=== PATIENT | male | born 1945 | race African-American/Black ===

== ENCOUNTER → 2022-12-30 09:14 | Outpatient (BNVA) | payer MEDICARE, SELFPAY | PROVIDERS: Visit Provider Urology | DX: N32.81 Overactive bladder (principal); I10 Essential (primary) hypertension; Z79.82 Long term (current) use of aspirin | CPT/HCPCS: 51798; 99202 ==

== ENCOUNTER → 2023-03-10 10:30 | Outpatient (BNVA) | payer MEDICARE, SELFPAY | PROVIDERS: PCP Family Medicine; Visit Provider Urology | DX: R39.15 Urgency of urination (principal); R35.0 Frequency of micturition | CPT/HCPCS: 52000; 99212 ==

== ENCOUNTER 2023-05-10 09:53 | Outpatient (AMB) | payer MEDICARE, SELFPAY ==
--- NOTE | 2023-05-10 09:53 | MHC.OFFVIS ---
Intake Intake Visit Reasons: 2Month follow up Intake Note: Patient is present for Telephone follow up Urology Med: Oxybutynin, Tadalafil Antibiotic Allergy: None Blood Thinner:Aspirin Pharmacy: [facility] Allergies No Known Allergies Allergy (Verified 05/10/23 09:54) Medication List - Last Reconciled 05/10/23 by Giovanny Vega MD aspirin 81 mg PO DAILY atorvastatin 80 mg PO DAILY lisinopril-hydrochlorothiazide 20-12.5 mg 1 tab PO DAILY metoprolol succinate ER 50 mg PO DAILY mirabegron ER (Myrbetriq) 25 mg PO DAILY 30 days oxybutynin chloride ER 5 mg PO DAILY 30 days HPI HPI Comments History of Present Illness Details Aba is a pleasant male. He is a patient of Dr Gaston. He is seen for the following urologic conditions - overactive bladder Telemedicine Evaluation 15 min Consultation [facility] Video attempted Minimal impact with tadalafil Switch to Myrbetriq 25 mg Two month follow-up Cystoscopy - open bladder neck, grade 3 trabeculations, small diverticulum Prior medications - oxybuytinin, tadalafil Overactive bladder Longstanding urgency and frequency Prior prostate procedure for BPH Discussed bladder instability Discussed dietary triggers Current therapy tadalafil 5 mg Cystoscopy - open bladder neck prior to have, grade 3 trabeculation, small diverticula Prior medication oxybutynin minimal impact PFSH Medical History Frequent urination HTN (hypertension) Surgical History H/O transurethral resection of prostate Assessment & Plan Assessment & Plan (1) Overactive bladder: Code(s): N32.81 - Overactive bladder Plan Two month follow-up Medications: New mirabegron ER (Myrbetriq) 25 mg PO DAILY 30 tabs 1RF 30 days N30.10 - Interstitial cystitis (chronic) without hematuria, N32.81 - Overactive bladder, R35.1 - Nocturia, R39.15 - Urgency of urination Discontinued tadalafil Discontinued Reason: Patient Completed Course 5 mg PO DAILY 90 tabs 0RF sexual activity 90 days N32.81 - Overactive bladder Patient Instructions: Imaging studies, laboratory and physical exam results were discussed and reviewed in detail. No major barriers to patient understanding were identified. An opportunity to ask questions regarding the treatment plan was provided. All questions were answered. The patient expressed understanding and agreement with the above treatment plan. The patient is aware they should contact our office by phone for worsening of their current condition or the appearance of new urologic symptoms. Compliance is encouraged with any medications and followup testing that is ordered. It is a privilege to participate in the urologic care of your patient. If you have any questions or concerns regarding treatment for the above conditions, or other urologic issues, please do not hesitate to contact me. The office telephone contact is [phone]. This note is constructed using voice recognition software. While every effort has been made to ensure accuracy access control specialist errors may have been included. Yours sincerely, Dr Giovanny Vega MD, SOPHY [facility] - Urology Providers of Expert, Compassionate Care for the Genitourinary System Telehealth Telehealth Location of provider rendering services: practice address Location of patient: address on file Patient Identification confirmed using: Name, : Yes Telehealth method: video Patient verbally consented to treatment: Yes Patient verbally consented to billing insurance company: Yes Patient informed of any privacy concerns related to visit: Yes Coding Level of Care Code Tele Est Pt Level 4 (20117) Diagnoses Overactive bladder N32.81
--- OUTSIDE RECORDS SUMMARY | 2023-05-10 09:54 | XMS_ITS | Continuity of Care Document ---
Author Name Unknown Organization [facility] ter Address [address] [place] [id number]- Care Team Providers Care Oncology Rn Name Role Phone Alek GARAY, Paramjit Reyes Primary Care Physician Encounter [facility] R [id number] Date(s): 12/11/20 - 12/11/[address] [address]- Encounter Diagnosis Precordial pain(Final) - 12/11/20 Discharge Disposition: A-D/C Home Attending Physician: Etta Harris MD Admitting Physician: Etta Harris MD Referring Physician: Not on Staff, Referring MD Allergies, Adverse Reactions, Alerts Substance Reaction Severity Status NKA Active Immunizations Not Given Vaccine Date Status Refusal Reason influenza virus vaccine, inactivated 11/10/17 Not Given Patient Refuses pneumococcal 13-valent vaccine 11/10/17 Not Given Patient Refuses Medications aspirin 81 mg oral delayed release tablet 81 mg, 1, tablet, By Mouth, Daily, # 90 tablet, Refills 3, Tot. Refills 3, Maintenance, 11/10/17 12:15:37, Route to Pharmacy Electronically, [id number], [facility]/pharmacy #0950 Start Date: 11/10/17 Stop Date: 11/05/18 Status: Ordered atorvastatin 80 mg oral tablet 1 tablet = 80 mg, By Mouth, Daily at bedtime, # 90 tablet, 0 Refills, Maintenance, Tablet, Route toPharmacy Electronically, [id number], [facility]/pharmacy #[id number] Start Date: 11/10/17 Stop Date: 02/08/18 Status: Ordered hydrochlorothiazide-lisinopril 12.5 mg-20 mg oral tablet 1 tablet, By Mouth, Daily, # 30 tablet, 0 Refills, Maintenance, 11/08/17 12:49:14, Tablet Start Date: 11/08/17 Status: Ordered metoprolol 50 mg oral tablet, extended release 50 mg, 1, tablet, By Mouth, Daily, # 90 tablet, Refills 3, Tot. Refills 3, Maintenance, 11/10/17 12:15:56, Route to Pharmacy Electronically, [id number], [facility]/pharmacy #0950 Start Date: 11/10/17 Stop Date: 11/05/18 Status: Ordered ticagrelor 90 mg oral tablet 1 tablet = 90 mg, By Mouth, 2 times a day, # 180 tablet, 3 Refills, Maintenance, 11/10/17 12:16:23,Tablet Start Date: 11/10/17 Stop Date: 11/05/18 Status: Ordered traMADol 50 mg oral tablet 1 tablet = 50 mg, By Mouth, Every 6 hours, PRN Pain , Severe, # 60 tablet, 0 Refills, Maintenance, 11/08/17 12:55:43, Tablet Start Date: 11/08/17 Status: Ordered Results Radiology Reports * Exam Date Time Procedure Performing Provider Status 12/11/20 4:42 PM Chest 2 Views Frontal and Lat Aleta Garces; To (Verified) Notes: (Chest 2 Views Frontal and Lat) Reason For Exam: Chest Pain;Other: RESULT: Chest 2 Views Frontal and Lat Chest 2 Views Frontal and Lat INDICATION: Hx of Present Illness: co heartburn no relief with Prilosec, states pain in center chest states pain has decreased, states stomach upset this am but denies at this time; Reason: Other:;Chest Pain; Clinical Question(s): Other: COMPARISON: 10/07/2020. FINDINGS: LINES AND TUBES: None. LUNGS AND PLEURA: The lungs are clear and the pulmonary vascularity is normal. No effusion or pneumothorax. HEART, MEDIASTINUM AND CAYDEN: Normal. BONES AND SOFT TISSUES: No acute abnormality. IMPRESSION: No acute cardiopulmonary disease. WSN: [id number] Ordering Physician: Sb Tejada Dictated By: Jacqueline Ruiz MD Dictated Date/Time: 12/11/20 4:49 pm Reviewed By: Jacqueline Ruiz MD Signed By: Jacqueline Ruiz MD Signed Date/Time: 12/11/20 4:49 pm Transcribed By: ELANA Transcribed Date/Time: 12/11/20 4:48 pm Vital Signs Most recent to oldest [Reference Range]: 1 2 3 Oxygen Saturation [94-100 %] 99 % (12/11/20 10:35 PM) 99 % (12/11/20 7:51 PM) 99 % (12/11/20 3:45 PM) Pulse Rate [55-90 bpm] 58 bpm (12/11/20 10:35 PM) 53 bpm *L* (12/11/20 7:51 PM) 90 bpm (12/11/20 3:45 PM) Blood Pressure [90-138/55-84 mm Hg] 137/60mm Hg (12/11/20 10:35 PM) 139/70mm Hg *H* (12/11/20 7:51 PM) 139/71mm Hg *H* (12/11/20 3:45 PM) Respiratory Rate [16-30 br/min] 16 br/min (12/11/20 10:35 PM) 13 br/min *L* (12/11/20 7:51 PM) 16 br/min (12/11/20 3:45 PM) Temperature [96.8-100.4 DegF] 98.6 DegF (12/11/20 7:51 PM) 98.5 DegF (12/11/20 3:45 PM) Mode of Delivery (Oxygen) Room air (12/11/20 10:35 PM) Room air (12/11/20 7:51 PM) Room air (12/11/20 3:45 PM) Blood pressure sites Arm, left (12/11/20 10:35 PM) Arm, left (12/11/20 7:51 PM) Temperature Route Oral (12/11/20 7:51 PM) Oral (12/11/20 3:45 PM) Social History Social History Type Response Smoking Status Former smoker; Other : quit 40 years ago; entered on: 02/05/18 Sex
--- OUTSIDE RECORDS SUMMARY | 2023-05-10 09:54 | XMS_ITS | Continuity of Care Document ---
Author Name Unknown Organization [facility] Address [address] [facility], 3r d Floor, [address] [place] [id number]- Care Team Providers Care Stroke Program Coordinator Name Role Phone Alek GARAY, Paramjit Reyes Primary Care Physician [place] [facility] [place] 10/02/20 [facility] [address], [address], [address] [place] [address]- Attending Physician: Ellen Fonseca Admitting Physician: Ellen Fonseca Referring Physician: AdmtrEllen Allergies, Adverse Reactions, Alerts Substance Reaction Severity [...] Maintenance, 11/10/17 12:15:37, Route to Pharmacy Electronically, [id number], [facility]/pharmacy #0950 Start Date: 11/10/17 Stop Date: 11/05/18 Status: Ordered atorvastatin 80 mg oral tablet 1 tablet = 80 mg, By Mouth, Daily at bedtime, # 90 tablet, 0 Refills, Maintenance, Tablet, Route toPharmacy Electronically, [id number], [facility]/pharmacy #0950 Start Date: 11/10/17 [...] Maintenance, 11/10/17 12:15:56, Route to Pharmacy Electronically, [id number], [facility]/pharmacy #0950 Start Date: 11/10/17 [...] 12:55:43, Tablet Start Date: 11/08/17 Status: Ordered Social History Social History Type Response Smoking Status Former smoker; Other : quit 40 years ago; entered on: 02/05/18 Sex
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
--- OUTSIDE RECORDS SUMMARY | 2023-05-10 09:54 | XMS_ITS | Continuity of Care Document ---
Author Name Unknown Organization [facility] Address [address] [facility], [address] d Floor, [address] [place] [address]- Care Team Providers Care Product Managent Intern Name Role Phone Paramjit Gaston MD Primary Care Physician [phone] [id number] Date(s): 06/12/20 - 10/02/20 [facility] [address], [address], [address] [place] [id number] Attending Physician: Erik Sims MD Admitting Physician: Erik Sims MD Referring Physician: Paramjit Gaston MD Allergies, Adverse Reactions, Alerts Substance Reaction [...] Maintenance, 11/10/17 12:15:37, Route to Pharmacy Electronically, [id number], [facility]/pharmacy #0950 Start Date: 11/10/17 Stop Date: 11/05/18 Status: Ordered atorvastatin 80 mg oral tablet 1 tablet = 80 mg, By Mouth, Daily at bedtime, # 90 tablet, 0 Refills, Maintenance, Tablet, Route toPharmacy Electronically, [id number], [facility]/pharmacy #0950 Start Date: 11/10/17 Stop Date: 02/08/18 Status: Ordered hydrochlorothiazide-lisinopril 12.5 mg-20 mg oral tablet 1 tablet, By Mouth, Daily, # 30 tablet, 0 Refills, Maintenance, 11/08/17 12:49:14, Tablet Start Date: 11/08/17 Status: Ordered metoprolol 50 mg oral tablet, extended release 50 mg, 1, tablet, By Mouth, Daily, # 90 tablet, Refills 3, Tot. Refills 3, Maintenance, 11/10/17 12:15:56, Route to Pharmacy Electronically, [id number], [facility]/pharmacy #0950 Start Date: 11/10/17 Stop Date: 11/05/18 [...]
--- OUTSIDE RECORDS SUMMARY | 2023-05-10 09:54 | XMS_ITS | Continuity of Care Document ---
Author Name Unknown Organization [facility] ion Address [address] [place] [address]- Care Team Providers Care Township Clerk Name Role Phone Paramjit Gaston MD Primary Care Physician Encounter [facility] Date(s): 06/16/20 - 07/18/[address] [address]- [facility] Discharge Disposition: A-D/C Home Attending Physician: Paramjit Gaston MD Admitting Physician: Paramjit Gaston MD Referring Physician: Paramjit Gaston MD Allergies, [...] Maintenance, 11/10/17 12:15:37, Route to Pharmacy Electronically, [id number], [facility]/pharmacy #0950 Start Date: 11/10/17 Stop Date: 11/05/18 Status: Ordered atorvastatin 80 mg oral tablet 1 tablet = 80 mg, By Mouth, Daily at bedtime, # 90 tablet, 0 Refills, Maintenance, Tablet, Route toPharmacy Electronically, [id number], [facility]/pharmacy #0950 Start Date: 11/10/17 Stop Date: [...] Maintenance, 11/10/17 12:15:56, Route to Pharmacy Electronically, [id number], [facility]/pharmacy #0950 Start Date: 11/10/17 Stop Date: [...]
== END 2023-05-10 10:09 | disposition home or self-care (01) ==
LOC: HO.HUSH 09:53
PROVIDERS: PCP Family Medicine; Visit Provider Urology
DX: N32.81 Overactive bladder (principal)
CPT/HCPCS: 99214

== ENCOUNTER → 2023-05-10 09:53 | Outpatient (BNVA) | payer MEDICARE, SELFPAY | PROVIDERS: PCP Family Medicine; Visit Provider Urology ==

== ENCOUNTER 2023-10-18 08:28 | Outpatient (AMB) | payer MEDICARE, SELFPAY ==
--- NOTE | 2023-10-18 08:32 | MHC.OFFVIS ---
Intake Intake Visit Reasons: 2M Med Review(Myrbetriq) Intake Note: Patient is Present for Telephone Follow Up Urology Med: Tadalafil Antibiotic Allergy: None Blood Thinner: Aspirin Patient did not get medication Myrbetriq and he is no longer on oxybutynin Allergies No Known Allergies Allergy (Verified 10/18/23 08:35) HPI HPI Comments History of Present Illness Details Aba is a pleasant male. He is a patient of Dr Gaston. He is seen for the following urologic conditions - overactive bladder Telemedicine Evaluation 15 min Consultation [facility] Video attempted Myrbetriq not covered by insurance Will try Toviaz 2 month f/u Has upcoming sleep test. Will start medication after sleep test Cystoscopy - open bladder neck, grade 3 trabeculations, small diverticulum Prior medications - oxybuytinin, tadalafil Overactive bladder Longstanding urgency and frequency Prior prostate procedure for BPH Discussed bladder instability Discussed dietary triggers Current therapy tadalafil 5 mg Cystoscopy 07/25 - open bladder neck prior to have, grade 3 trabeculation, small diverticula Prior medication oxybutynin minimal impact PFSH Medical History HTN (hypertension) Frequent urination Surgical History H/O transurethral resection of prostate Review of Systems Const All systems reviewed & are unremarkable except as noted in HPI and below Reports no additional complaints Resp Reports no additional complaints GI Reports no additional complaints Reports as per HPI Musc Reports no additional complaints Physical Exam Telemedicine evaluation Appropriate responses Regular breathing rate and rhythm HEENT Head: Yes normal to inspection Ears: hearing grossly normal bilaterally Eyes General: appearance normal, both eyes and all related structures Neck Neck: Yes normal visual inspection Chest Chest palpation & inspection: normal inspection of the chest Resp Effort & Inspection: normal respiratory effort and able to speak in complete sentences Assessment & Plan Assessment & Plan (1) Overactive bladder: Code(s): N32.81 - Overactive bladder Plan trial toviaz Medications: New fesoterodine ER 4 mg PO DAILY 30 tabs 1RF 30 days N32.81 - Overactive bladder, N40.0 - Benign prostatic hyperplasia without lower urinary tract symptoms Patient Instructions: Imaging studies, laboratory and physical exam results were discussed and reviewed in detail. No major barriers to patient understanding were identified. An opportunity to ask questions regarding the treatment plan was provided. All questions were answered. The patient expressed understanding and agreement with the above treatment plan. The patient is aware they should contact our office by phone for worsening of their current condition or the appearance of new urologic symptoms. Compliance is encouraged with any medications and followup testing that is ordered. It is a privilege to participate in the urologic care of your patient. If you have any questions or concerns regarding treatment for the above conditions, or other urologic issues, please do not hesitate to contact me. The office telephone contact is [phone]. This note is constructed using voice recognition software. While every effort has been made to ensure accuracy bag inspector errors may have been included. Yours sincerely, Dr Giovanny Vega MD, SOPHY [facility] - Urology Providers of Expert, Compassionate Care for the Genitourinary System Telehealth Telehealth Location of provider rendering services: practice address Location of patient: address on file Patient Identification confirmed using: Name, : Yes Telehealth method: video Patient verbally consented to treatment: Yes Patient verbally consented to billing insurance company: Yes Patient informed of any privacy concerns related to visit: Yes Coding Level of Care Code Tele Est Pt Level 4 (99434) Diagnoses Overactive bladder N32.81
== END 2023-10-18 08:50 | disposition home or self-care (01) ==
LOC: HO.HUSH 08:28
PROVIDERS: PCP Family Medicine; Visit Provider Urology
DX: N32.81 Overactive bladder (principal)
CPT/HCPCS: 99213

== ENCOUNTER → 2023-10-18 08:28 | Outpatient (BNVA) | payer MEDICARE, SELFPAY | PROVIDERS: PCP Family Medicine; Visit Provider Urology ==

== ENCOUNTER 2023-12-20 08:29 | Outpatient (AMB) | payer MEDICARE, SELFPAY ==
--- NOTE | 2023-12-20 08:30 | MHC.OFFVIS ---
Intake Intake Visit Reasons: 2M Med Review(Toviaz) Intake Note: Patient is Present for Telephone Follow Up medication review Urology Med:Toviaz,Tadalafil, Oxybutynin (Insurance did not cover Myrbetriq) Antibiotic Allergy:None Blood Thinner:Aspirin Confirmed pharmacy: [facility] Allergies No Known Allergies Allergy (Verified 12/20/23 08:31) HPI HPI Comments History of Present Illness Details Aba is a pleasant male. He is a patient of Dr Gaston. He is seen for the following urologic conditions - overactive bladder Telemedicine Evaluation 15 min Consultation [facility] [place] Video Toviaz minimal assistance Tried Gemtessa 2 month f/u Prior Cystoscopy 07/25 - open bladder neck, grade 3 trabeculations, small diverticulum Prior medications - oxybuytinin, tadalafil, myrbetriq effective but not covered by insurance, miinimal impact from Toviaz Overactive bladder Longstanding urgency and frequency Prior prostate procedure for BPH Discussed bladder instability Discussed dietary triggers Current therapy tadalafil 5 mg Cystoscopy 07/25 - open bladder neck prior to have, grade 3 trabeculation, small diverticula Prior medication oxybutynin minimal impact PFSH Medical History HTN (hypertension) Frequent urination Surgical History H/O transurethral resection of prostate Review of Systems Const All systems reviewed & are unremarkable except as noted in HPI and below Reports no additional complaints Resp Reports no additional complaints GI Reports no additional complaints Reports as per HPI Musc Reports no additional complaints Physical Exam Telemedicine evaluation Appropriate responses Regular breathing rate and rhythm HEENT Head: Yes normal to inspection Ears: hearing grossly normal bilaterally Eyes General: appearance normal, both eyes and all related structures Neck Neck: Yes normal visual inspection Chest Chest palpation & inspection: normal inspection of the chest Resp Effort & Inspection: normal respiratory effort and able to speak in complete sentences Assessment & Plan Assessment & Plan (1) Overactive bladder: Code(s): N32.81 - Overactive bladder Plan Trial Gemtesa Medications: New vibegron (Gemtesa) 75 mg PO DAILY 30 tabs 1RF 30 days N32.81 - Overactive bladder Discontinued oxybutynin chloride ER Discontinued Reason: Patient Completed Course 5 mg PO DAILY 30 days 30 tabs 1RF N32.81 - Overactive bladder mirabegron ER Discontinued Reason: Patient Completed Course 25 mg PO DAILY 30 days 30 tabs 1RF N30.10 - Interstitial cystitis (chronic) without hematuria, N32.81 - Overactive bladder, R35.1 - Nocturia, R39.15 - Urgency of urination fesoterodine ER Discontinued Reason: Patient Completed Course 4 mg PO DAILY 30 days 30 tabs 1RF N32.81 - Overactive bladder, N40.0 - Benign prostatic hyperplasia without lower urinary tract symptoms Patient Instructions: Imaging studies, laboratory and physical exam results were discussed and reviewed in detail. No major barriers to patient understanding were identified. An opportunity to ask questions regarding the treatment plan was provided. All questions were answered. The patient expressed understanding and agreement with the above treatment plan. The patient is aware they should contact our office by phone for worsening of their current condition or the appearance of new urologic symptoms. Compliance is encouraged with any medications and followup testing that is ordered. It is a privilege to participate in the urologic care of your patient. If you have any questions or concerns regarding treatment for the above conditions, or other urologic issues, please do not hesitate to contact me. The office telephone contact is [phone]. This note is constructed using voice recognition software. While every effort has been made to ensure accuracy secretary office clerk errors may have been included. Yours sincerely, Dr Giovanny eVga MD, [facility] - Urology Providers of Expert, Compassionate Care for the Genitourinary System Telehealth Telehealth Location of provider rendering services: practice address Location of patient: address on file Patient Identification confirmed using: Name, : Yes Telehealth method: video Patient verbally consented to treatment: Yes Patient verbally consented to billing insurance company: Yes Patient informed of any privacy concerns related to visit: Yes Minutes spent on Phone/Video with Pt.: 15 Coding Level of Care Code Tele Est Pt Level 3 (32141) Diagnoses Overactive bladder N32.81
== END 2023-12-20 16:30 | disposition home or self-care (01) ==
LOC: HO.HUSH 08:30
PROVIDERS: PCP Family Medicine; Visit Provider Urology
DX: N32.81 Overactive bladder (principal)
CPT/HCPCS: 99213

== ENCOUNTER → 2023-12-20 08:29 | Outpatient (BNVA) | payer MEDICARE, SELFPAY | PROVIDERS: PCP Family Medicine; Visit Provider Urology ==

== ENCOUNTER 2024-05-29 14:05 | Outpatient (AMB) | payer MEDICARE, SELFPAY ==
--- NOTE | 2024-05-29 14:32 | A.OFFVIS_ITS ---
Intake Visit Reasons: Med review Intake Note: Patient is Present for Follow Up Med Review Urology Medication: Tadalafil, Fesoterodine(Toviaz) Antibiotic Allergies: None Blood Thinners:None Patient states that he needs a refill on Fesoterodine States that medication has been effective for him Technology Teacher Required: No Allergies No Known Allergies Allergy (Verified 05/29/24 14:43) HPI Comments Details: Aba is a pleasant male. He is a patient of Dr Gaston. He is seen for the following urologic conditions - overactive bladder Good response to Toviaz Refill Prior Cystoscopy 07/25 - open bladder neck, grade 3 trabeculations, small diverticulum Prior medications - oxybuytinin, tadalafil, myrbetriq effective but not covered by insurance, miinimal impact from Gemtessa Six-month follow-up tele Overactive bladder Longstanding urgency and frequency Prior prostate procedure for BPH Discussed bladder instability Discussed dietary triggers Current therapy tadalafil 5 mg Cystoscopy 07/25 - open bladder neck prior to have, grade 3 trabeculation, small diverticula Prior medication oxybutynin minimal impact PFSH Medical History HTN (hypertension) Frequent urination Surgical History H/O transurethral resection of prostate Review of Systems Const Denies chills and Denies fever(s) Card Reports no additional complaints and Denies syncope Resp Denies cough GI Denies abdominal pain and Denies heartburn Reports as per HPI and Denies change in libido Neuro Denies syncope Psych Denies change in libido Endo Denies change in libido Physical Exam Const General: cooperative, healthy appearing, comfortable and no acute distress Orientation/consciousness: patient oriented x3 HEENT Face and sinus: Yes normal facial exam Mouth: moist mucous membranes Neck Neck: Yes normal visual inspection, Yes full ROM and Yes trachea midline Chest Chest palpation & inspection: normal inspection of the chest Resp Effort & Inspection: normal respiratory effort, able to speak in complete sentences and no respiratory distress GI Inspection: Yes normal to inspection Back/Spine/Pelvis Cervical Spine: normal cervical lordosis Thoracic/Lumbar Spine: thoracic and lumbar spine normal to inspection Skin General skin exam: no rashes or lesions noted Neuro General: patient oriented x3, gait normal, tone normal and moves all extremities Extrem General: Yes normal to inspection and Yes capillary refill normal Assessment & Plan Assessment & Plan (1) Overactive bladder: Code(s): N32.81 - Overactive bladder Category: Medical Plan Six-month follow-up tele Medications: Changed From fesoterodine ER 4 mg PO DAILY 30 days 30 tabs 1RF N32.81 - Overactive bladder, N40.0 - Benign prostatic hyperplasia without lower urinary tract symptoms To fesoterodine ER 4 mg PO DAILY 90 tabs 1RF 90 days N32.81 - Overactive bladder, N40.0 - Benign prostatic hyperplasia without lower urinary tract symptoms Patient Instructions: Imaging studies, laboratory and physical exam results were discussed and reviewed in detail. No major barriers to patient understanding were identified. An opportunity to ask questions regarding the treatment plan was provided. All questions were answered. The patient expressed understanding and agreement with the above treatment plan. The patient is aware they should contact our office by phone for worsening of their current condition or the appearance of new urologic symptoms. Compliance is encouraged with any medications and followup testing that is ordered. It is a privilege to participate in the urologic care of your patient. If you have any questions or concerns regarding treatment for the above conditions, or other urologic issues, please do not hesitate to contact me. The office telephone contact is [phone]. This note is constructed using voice recognition software. While every effort has been made to ensure accuracy agricultural equipment sales manager errors may have been included. Yours sincerely, Dr Giovanny Vega MD, [facility] - Urology Providers of Expert, Compassionate Care for the Genitourinary System Coding Level of Care Code Est Pt Level 3 (07777) Diagnoses Overactive bladder N32.81
== END 2024-05-29 15:35 | disposition home or self-care (01) ==
PROVIDERS: PCP Family Medicine; Visit Provider Urology
DX: N32.81 Overactive bladder (principal)
CPT/HCPCS: 99213

== ENCOUNTER → 2024-05-29 14:05 | Outpatient (BNVA) | payer MEDICARE, SELFPAY | PROVIDERS: PCP Family Medicine; Visit Provider Urology | DX: N32.81 Overactive bladder (principal) | CPT/HCPCS: 99212 ==

== ENCOUNTER 2024-11-30 11:55 | Outpatient (AMB) | payer MEDICARE, SELFPAY ==
--- NOTE | 2024-11-30 11:55 | MHC.OFFVIS ---
Intake Visit Reasons: 6M Med Review(Fesoterodine) Intake Note: Pt presents to the office today as a telehealth for a 6 month follow up medication review. Allergies No Known Allergies Allergy (Verified 11/30/24 11:56) HPI Comments Details: Aba is a pleasant male. He is a patient of Dr Gaston. 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 Had been on festerodine for overactive bladder Nocturia x1 6m f/u office Prior Cystoscopy 07/25 - open bladder neck, grade 3 trabeculations, small diverticulum Prior medications - oxybuytinin, tadalafil, myrbetriq effective but not covered by insurance, miinimal impact from Gemtessa Overactive bladder Longstanding urgency and frequency Prior prostate procedure for BPH Discussed bladder instability Discussed dietary triggers Current therapy tadalafil 5 mg Cystoscopy 07/25 - open bladder neck prior to have, grade 3 trabeculation, small diverticula Prior medication oxybutynin minimal impact PFSH Medical History HTN (hypertension) Frequent urination Surgical History H/O transurethral resection of prostate Review of Systems Const All systems reviewed & are unremarkable except as noted in HPI and below Reports no additional complaints Resp Reports no additional complaints GI Reports no additional complaints Reports as per HPI Musc Reports no additional complaints Physical Exam Telemedicine evaluation Appropriate responses Regular breathing rate and rhythm HEENT Head: Yes normal to inspection Ears: hearing grossly normal bilaterally Eyes General: appearance normal, both eyes and all related structures Neck Neck: Yes normal visual inspection Chest Chest palpation & inspection: normal inspection of the chest Resp Effort & Inspection: normal respiratory effort and able to speak in complete sentences Telehealth Telehealth Telehealth Platform: [employer] Location of provider rendering services: practice address Location of patient: address on file Patient Identification confirmed using: Name, : Yes Telehealth method: video Patient verbally consented to treatment: Yes Patient verbally consented to billing insurance company: Yes Patient informed of any privacy concerns related to visit: Yes Minutes spent on Phone/Video with Pt.: 15 Assessment & Plan Assessment & Plan (1) Overactive bladder: Code(s): N32.81 - Overactive bladder Category: Medical Plan Six-month follow-up office Patient Instructions: This note is constructed using voice recognition software. While every effort has been made to ensure accuracy memorial counselor errors may have been included. Imaging studies, laboratory and physical exam results were discussed and reviewed in detail. No major barriers to patient understanding were identified. An opportunity to ask questions regarding the treatment plan was provided. All questions were answered. The patient expressed understanding and agreement with the above treatment plan. The patient is aware they should contact our office by phone for worsening of their current condition or the appearance of new urologic symptoms. Compliance is encouraged with any medications and followup testing that is ordered. It is a privilege to participate in the urologic care of your patient. If you have any questions or concerns regarding treatment for the above conditions, or other urologic issues, please do not hesitate to contact me. The office telephone contact is [phone]. Sincerely, Dr Giovanny Vega MD, [facility] - Urology Compassionate Specialist Care for the Genitourinary System Coding Level of Care Code Tele Est Pt Level 3 (65561) Diagnoses Overactive bladder N32.81
--- OUTSIDE RECORDS SUMMARY | 2024-11-30 14:13 | XMS_ITS | Clinical Summary ---
Author Organization [facility] Address [address] [place] [address] Care Team Providers Care Urology Nurse Name Role Phone Paramjit Gaston MD Primary Care Provider [phone] Allergies No known active allergies Medications No known medications Active Problems No known active problems Social History Tobacco Use Types Packs/Day Years Used Date Smoking Tobacco: Never Assessed Sex and Gender Information Value Date Recorded Sex Assigned at Male 08/30/2023 11:18 AM EST Gender Identity Male 08/30/2023 11:18 AM EST Sexual Orientation Heterosexual (straight) 08/30 11:18 AM EST Last Filed Vital Signs Vital Sign Reading Time Taken Comments Blood Pressure 182/99 09/25/2020 9:11 PM EST Pulse 86 09/25/2020 9:11 PM EST Temperature 36.8 ??C (98.2 ??F) 09/25/2020 9:11 PM ES T Respiratory Rate 18 09/25/2020 9:11 PM EST Oxygen Saturation 99% 09/25/2020 9:11 PM EST Inhaled Oxygen Concentration - - Weight - - Height - - Body Mass Index - - Plan of Treatment Health Maintenance Due Date Last Done Comments Hepatitis C Virus Screening 1945 DTaP/Tdap/Td Vaccines (1 - Tdap) 1965 Pneumococcal Vaccines 50+ (1 of 1 - PCV) 1996 Zoster (Shingles) Vaccine (1 of 2) 1996 RSV Vaccine 60 years and older and Patients (1 - 1-dose 75+ series) 2021 Influenza Vaccine 05/03/2024 07/11/2023, 11/29/2022, 10/03/2018 COVID-19 Vaccine (3 - 2023-2 5 season) 2024 07/11/2023, 11/29/2022 Hepatitis B Vaccines Aged Out No long er eligible based on patient's age to complete this topic Care Teams Urology Nurse Relationship Specialty Start Date End Date Paramjit Gaston MD PCP - General Internal Medicine 09/25/20
--- OUTSIDE RECORDS SUMMARY | 2024-11-30 14:13 | XMS_ITS | Clinical Summary ---
Author Organization [facility] Address [address] [place] [address] Care Team Providers Care Manager Warehouse Name Role Phone Paramjit Gaston MD Primary Care Provider Unavaila ble Allergies No known active allergies Medications Medication Sig Dispensed Refills Start Date End Date Status atorvastatin (LIPITOR) tablet 80 mg Take 1 tablet (80 mg total) by mouth every night at bedtime. 0 11/10/2017 Active ASPIRIN LOW DOSE 81 MG EC tablet Take 1 tablet (81 mg total) by mouth daily. 0 05/17/2020 Active metoprolol succinate (TOPROL-XL) 24 hr tablet 25 mgIndications:Essenti al hypertension,CAD, multiple vessel Take 1 tablet (25 mg total) by mouth daily. 90 tablet 3 08/30/2023 Active Fesoterodine Fumarate ER (TOVIAZ) 4 MG TB24 24 hr tablet Take 1 tablet (4 mg total) by mouth daily. for 30 days 0 02/29/2024 Active naltrexone (DEPADE) 50 MG tabletIndications:Alc ohol use disorder, moderate, dependence (HCC) Take 1/2 - 1 tab (25 -50 mg) once a day, at least one hour before planned drink. 60 tablet 2 07/03/2024 Active Active Problems Problem Noted Date Diagnosed Date History of COVID-19 11/08/2022 History of [place] (myocardial infarction) 11/08/2022 Alcohol use disorder, moderate, dependence 11/08 Benign prostatic hyperplasia with lower urinary tract symptoms 08/07/2022 Diverticulitis of sigmoid colon 02/08/2022 Mixed hyperlipidemia 02/12/2021 Raynaud's phenomenon without gangrene 02/07/2019 History of total hip arthroplasty, left 10/04/19 Overview: Doing well History of rotator cuff surgery 10/04/2018 Overview: Left Spondylosis of cervical zena on without myelopathy or radiculopathy 04/21/2018 Allergic rhinitis 03/10/2018 S/P drug eluting coronary stent placement 2017 CAD, multiple vessel 11/08/2017 Overview: Inferior STEMI. recent stress test, 06/2018. On Brilinta Disorder of rotator cuff, right 06/02/2017 Gastroesophageal reflux disease without esophagi tis 09/24/2016 Panic attacks 09/24/2016 Essential hypertension 09/24/2016 Esophageal thickening 09/24/2016 Medicare annual wellness visit, subsequent 09/24 History of total knee arthroplasty, left 010 Overview: Doing well History of total hip arthroplasty, right 008 Degenerative disc disease, cervical Resolved Problems Problem Noted Date Diagnosed Date Resolved Date COVID-19 virus infection 05/23/202203/2023 Right foot drop 05/30/2020 05/23/2022 Hematoma of toe of right foot 06/15/2019 05/30/2020 Lower abdominal pain 02/07/2019 020 Occipital pain 02/07/2019 05/30/2020 H/O cardiovascular stress test 06/03/2018 10/04/2018 Overview: see result Referred otalgia of right ear 04/21/2018 01/30/2019 Neck pain 04/21/2018 01/30/2019 Intermittent palpitations 04/21/2018 Abdominal cramping 03/10/[address] elevation [place] (STEMI) 11/21/2017 0203/2023 Pre-op evaluation 07/06/2017 11/21/2017 Complete tear of left rotator cuff 06/02/2017 01/30/2019 AC (acromioclavicular) joint arthritis 06/02/2017 01/30/2019 Degenerative tear of acetabu lar labrum of right hip 04/01/2017 01/30/2019 Primary osteoarthritis of right hip 04/01/2017 10/04/2018 Rotator cuff syndrome 12/08/20162016 Left supraspinatus tendinitis 09/24/2016 04/21/2018 Need for hepatitis C screening test 09/24/2016 10/13/2016 Prediabetes 01/30/2019 Overview: A1C 5.8 Immunizations Name Administration Dates Next Due Covid-19 (Moderna 12+) Bivalent 50mcg/0.5mL 11/04 Covid-19 (Moderna Booster 18+) 0.25mL dosage 06/2023 Influenza Quad (Flucelvax) 0.5mL >6mon (ccIIV4) 10/03/2018 Influenza Quad (High Dose Fl uzone) 0.7mL >65Yrs (HD-IIV4) 07/11/2023,11/29/2022 Pneumococcal Conjugate PCV20 02/04/2023 Pneumococcal Polysaccharide PPSV23 09/24/2016 Shingrix Vaccine (Zoster Recombinant) 02/04/2023 Td (Adult) Decavac 10/04/2006 Family History Relation Name Status Comments Daughter Alive Father (Age 62) Cirrhosis Mother TB Son Alive Social History Tobacco Use Types Packs/Day Years Used Date Smoking Tobacco: Former Cigarettes 1 5 Q uit: 1978 Smokeless Tobacco: Never Alcohol Use Standard Drinks/Week Comments Yes 0 (1 standard drink = 0.6 oz pur e alcohol) 14-21 GLASSES OF WINE WEEKLY Sex and Gender Information Value Date Recorded Sex Assigned at Male 08/11/2018 1:29 PM EST Gender Identity Male 08/11/2018 1:29 PM EST Sexual Orientation Straight 08/11/2018 1: 29 PM EST Job Start Date Occupation Industry Not on file Not on file Not on file Last Filed Vital Signs Vital Sign Reading Time Taken Comments Blood Pressure 148/73 03/30/2024 9:19 AM EDT Pulse 58 03/30/2024 9:19 AM EDT Temperature 36.7 ??C (98 ??F) 03/30/2024 9:19 AM EDT Respiratory Rate 18 03/30/2024 9:19 AM EDT Oxygen Saturation 99% 08/29/2018 7:00 AM EST Inhaled Oxygen Concentration - - Weight 77.6 kg (171 lb) 03/30/2024 9:19 AM EDT Height 182.9 cm (6') 02/07/2019 6:10 PM EDT Body Mass Index 23.19 02/07/2019 6:10 PM EDT Plan of Treatment Health Maintenance Due Date Last Done Comments DTap / Tdap / Td (1 - Tdap) 10/05/2006 10/04/2006 RSV Adult > 60+ Yrs or (1 - 1-dose 75+ series) 2021 Shingrix-Zoster Vaccine (2 of 2) 04/01/2023 02/04/2023 COVID-19 Vaccine (3 - season) 2024 07/11/2023, 07/11/2023, 11/29/2022 Influenza Vaccine (#1) 2024 , 11/29/2022, 06/27/2020 (Declined), Additional history exists Depression Screening 03/30/2025 03/30/2024, 03/30/2024, 03/30/2024, Additional history exists Fall Risk Assessment 03/30/2025 03/30/2024, 03/30/2024, 03/30/2024, Additional history exists Preventative Health Evaluation 03/30/2025 03/30/2024, 03/30/2024, 02/04/2023, Additional history exists Hepatitis C Screening Completed 09/24/2016 Pneumococcal Vaccine Completed 02/04/2023, 09/24/20 16 Hepatitis B Vaccines Aged Out No long er eligible based on patient's age to complete this topic RSV Ped < 20 months Aged Out No longe r eligible based on patient's age to complete this topic Medical Devices Implanted Type Area Patrol Community Service Officer Device Identifier Shelf Expiration Date Model / Serial / Lot Shell Trident Psl G 58mm 5 Hole Cluster Rim Hydrox - [id number] - [id number] Implanted:Qty: 1 on 08/28/2018 by Josué Rod[facility]guez MD [place] [facility] Right: Hip [employer] 05/16/2023 [id number] / / [id number] Screw Trident Secur-Fit 40mm 6.5mm Titanium Bone Cancellous - [id number] - [id number] Implanted:Qty: 1 on 08/28/2018 by Josué Rodríguez MD at [facility] Right: Hip [employer] 02/15/2023 [id number] 1 / / [id number] Screw Trident Secur-Fit 35mm 6.5mm Titanium Bone Cancellous - [id number] - [id number] Implanted:Qty: 1 on 08/28/2018 by Josué Rodríguez MD at [facility] Right: Hip [employer] 04/06/2023 [id number] 1 / / [id number] Insert Trident 10d G 36mm Eccentric X3 Acetabular Hip - [id number] - [id number] Implanted:Qty: 1 on 08/28/2018 by Josué Rodríguez MD at [facility] Right: Hip [employer] 02/08/2022 [id number] / / [id number] Stem Secur-Fit Plus 10 160mm 35mm 14mm Primar Malone Femoral Hip - [id number] - [id number] Implanted:Qty: 1 on 08/28/2018 by Josué Rodríguez MD at [facility] Right: Hip [employer] 03/08/2023 [id number] / / [id number] Head 0mm 36mm C Taper High Performance Offset [employer] Delta - [id number] - [id number] Implanted:Qty: 1 on 08/28/2018 by Josué Rodríguez MD at [facility] Right: Hip [employer] 03/02/2023 [id number] / / [id number] Advance Directives For more information, please contact: [phone] Latest Code Status on File Code Status Date Activated Date Inactivated Comments Full Code 08/28/2018 9:20 AM 08/29/2018 7:08 PM Thi s code status was ascertained in the following way: discussion with patient . Code Status History Code Status Date Activated Date Inactivated Comments Full Code 08/28/2018 5:21 AM 08/28/2018 9:20 AM Thi s code status was ascertained in the following way: discussion with patient . Care Teams Manager Warehouse Relationship Specialty Start Date End Date Paramjit Gaston MD PCP - General Family Medicine 08/31/16
--- OUTSIDE RECORDS SUMMARY | 2024-11-30 14:13 | XMS_ITS ---
Author Name [facility] Organization Unknown History of Medication Use Medication Directions Dispensed Refills Start Date End Date Stat us lisinopril (PRINIVIL,ZESTRIL) tablet 20 mg Take 1 tablet (20 mg total) by mouth daily. 08/30/2023 08/30/2024 active ASPIRIN LOW DOSE 81 MG EC tablet Take 1 tablet (81 mg total) by mouth daily. 05/17/2020 active betamethasone acetate-betamethason e sodium phosphate (CELESTONE) injection 12 mg 12 mg, Intra-articular, Once PRN Procedure, Starting on Tue08/31/23 at 0845, For 1 dose 04/28/2023 08/31/2023 completed omeprazole (PriLOSEC) 40 MG capsule Take 1 capsule (40 mg total) by mouth daily. 05/05/2022 03/30/2024 aborted Fesoterodine Fumarate ER (TOVIAZ) 4 MG TB24 24 hr tablet Take 1 tablet (4 mg total) by mouth daily. for 30 days 02/29/2024 active Problems Problem Status Onset Date Problem Type Date of Resolution Source History of rotator cuff surgery active 2018-10-04 ProblemAct [facility] Benign prostatic hyperplasia with lower urinary tract symptoms active 2022-08-07 ProblemAct [facility] Esophageal thickening active 2016-09-24 ProblemAct [facility] History of ME (myocardial infarction) active 2022-11-08 ProblemAct [facility] Allergic rhinitis active 2018-03-10 ProblemAct [facility] Spondylosis of cervical region without myelopathy or radiculopathy active 2018-04-21 ProblemAct [facility] Alcohol use disorder, moderate, dependence active 2022-11-08 ProblemAct [facility] CAD, multiple vessel active 2017-11-08 ProblemAct [facility] History of total knee arthroplasty, left active 2010-09-02 ProblemAct [facility] Essential hypertension active 2016-09-24 ProblemAct [facility] Arthritis of right acromioclavicular joint active EncounterDiagnosisAct CCT S/P drug eluting coronary stent placement active 2017-11-21 ProblemAct [facility] Disorder of rotator cuff, right active 2017-06-02 ProblemAct [facility] History of total hip arthroplasty, left active 2018-10-04 ProblemAct [facility] History of total hip arthroplasty, right active 2008-03-03 ProblemAct [facility] Raynaud's phenomenon without gangrene active 2019-02-07 ProblemAct [facility] History of COVID-19 active 2022-11-08 ProblemAct [facility] Gastroesophageal reflux disease without esophagitis active 2016-09-24 ProblemAct [facility] Degenerative disc disease, cervical active EncounterDiagnosisAct C [facility] Mixed hyperlipidemia active 2021-02-12 ProblemAct [facility] Diverticulitis of sigmoid colon active 2022-02-08 ProblemAct [facility] Panic attacks active 2016-09-24 ProblemAct [facility] Biceps tendinitis of right upper extremity active EncounterDiagnosisAct [facility] Nontraumatic tear of right rotator cuff, unspecified tear extent active EncounterDiagnosisAct [facility] Loose body in right shoulder active EncounterDiagnosisAct [facility] Immunizations Vaccine Date Source Lot Number Status Td (Adult) Decavac 10/04/2006 [facility] comple steff Pneumococcal Conjugate PCV20 02/04/2023 [facility] [id number] completed Influenza Quad (Flucelvax) 0 .5mL >6mon (ccIIV4) 10/03/2018 [facility] completed Pneumococcal Polysaccharide PPSV23 09/24/2016 [facility] M [id number] completed Covid-19 (Moderna Booster 18+) 0.25mL dosage 07/11/2023 [facility] completed Shingrix Vaccine (Zoster Recombinant) 02/04/2023 [facility] completed Covid-19 (Moderna 12+) Bivalent 50mcg/0.5mL 11/29/2022 [facility] [id number] completed Influenza Quad (High Dose Fl uzone) 0.7mL >65Yrs (HD-IIV4) 11/29/2022 [facility] [id number] completed Influenza Quad (High Dose Fl uzone) 0.7mL >65Yrs (HD-IIV4) 07/11/2023 [facility] [id number] completed
--- OUTSIDE RECORDS SUMMARY | 2024-11-30 14:14 | XMS_ITS | Encounter Summary ---
Author Organization [facility] Address [address] [place] [address] Care Team Providers Care Meat Cutting Teacher Name Role Phone Paramjit Gaston MD Primary Care Provider [phone] Encounter Details Date Type Department Care Team (Late st Contact Info) Description 12/07/2021 Erroneous Encounter [facility] [address] [place] [address] ProviderChristian MD Social History Tobacco Use Types Packs/Day Years Used Date Smoking Tobacco: Never Assessed Sex and Gender Information Value Date Recorded Sex Assigned at Male 08/30/2023 11:18 AM EST Gender Identity Male 08/30/2023 11:18 AM EST Sexual Orientation Heterosexual (straight) 08/30 11:18 AM EST documented as of this encounter Plan of Treatment Not on file documented as of this encounter Visit Diagnoses Not on filedocumented in this encounter Care Teams Meat Cutting Teacher Relationship Specialty Start Date End Date Paramjit Gaston MD PCP - General Internal Medicine 09/25/20 documented as of this encounter
--- OUTSIDE RECORDS SUMMARY | 2024-11-30 14:14 | XMS_ITS | Clinical Summary ---
Author Organization [facility] Address [address] [place] [address] Phone Care Team Providers Care Assembler Final Name Role Phone Paramjit Gaston MD Primary Care Provider [phone] Allergies No known active allergies Medications naltrexone (DEPADE) 50 mg tablet Take 1/2 - 1 tab (25 -50 mg) once a day, at least one hour before planned drink. 06/21/20 23 Active aspirin 81 mg EC tablet TAKE 1 TABLET BY MOUTH EVERY DAY 90 tablet 09/12/20 24 Active metoprolol succinate (TOPROL-XL) 25 mg 24 hr tablet TAKE 1 TABLET BY MOUTH EVERY DAY 90 tablet 2 09/19/20 24 Active ezetimibe (ZETIA) 10 mg tabletIndications: Mixed hyperlipidemia Take 1 tablet (10 mg total) by mouth 1 (one) time each day. 90 each 3 10/23/19 25 026 Active lisinopril (PRINIVIL,ZESTRIL) 40 mg tabletIndications: Essential hypertension Take 1 tablet (40 mg total) by mouth 1 (one) time each day. 30 each 11 10/23/19 25 026 Active atorvastatin (LIPITOR) 80 mg tablet TAKE 1 TABLET BY MOUTH EVERY DAY 90 tablet 2 11/28/19 25 Active atorvastatin (LIPITOR) 80 mg tablet TAKE 1 TABLET BY MOUTH EVERY DAY 90 tablet 08/28/20 24 025 Discontinued Active Problems Problem Noted Date Diagnosed Date Degenerative disc disease, cervical 11/23/2023 Assessment & Plan (10/23/2024 5:38 PM EST): The patient is being followed by [facility] he has had a favorable response to cervical nerve block with modest improvement in range of motion and diminution of pain. Orders: ECG 12 lead Alcohol use disorder, moderate, dependence 11/08 History of NH (myocardial infarction) 11/08/2022 Benign prostatic hyperplasia with lower urinary tract symptoms 08/07/2022 Diverticulitis of sigmoid colon 02/08/2022 Mixed hyperlipidemia 02/12/2021 Assessment & Plan (10/23/2024 5:38 PM EST): Most recent LDL cholesterol is 87 mg/dL. Ideally his LDL should be less than 70 mg/dL. I will add Zetia 10 mg daily to his regimen and suggest F/U lipids in several weeks. He has been adherent to pharmacologic therapy in conjunction with a superb dietary regimen. Orders: ECG 12 lead ezetimibe (ZETIA) 10 mg tablet; Take 1 tablet (10 mg total) by mouth 1 (one) time each day. 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 recent stress test, 06/2018. On Brilinta Assessment & Plan (10/23/2024 5:38 PM EST): The patient has done beautifully since he underwent posterior descending artery stenting in the setting of an acute limited inferior wall myocardial infarction several years ago. He has engaged in excellent lifestyle changes and has not had any symptoms to suggest angina, congestive heart failure or dysrhythmia. We will continue efforts at controlling hypertension and hyperlipidemia. Orders: ECG 12 lead Disorder of rotator cuff, right 06/02/2017 Esophageal thickening 09/24/2016 Essential hypertension 09/24/2016 Assessment & Plan (10/23/2024 5:38 PM EST): Blood pressure has generally been well-controlled but he has had several markedly elevated blood pressures lately. 1 of these occurred immediately prior to a neck injection. He may also have lingering steroid effect which may increase the blood pressure. I will ask him to maintain a blood pressure diary and to double his lisinopril with a close eye on blood pressure parameters. If this approach is an adequate he may benefit from the addition of low-dose diuretic therapy. Orders: ECG 12 lead lisinopril (PRINIVIL,ZESTRIL) 40 mg tablet; Take 1 tablet (40 mg total) by mouth 1 (one) time each day. Gastroesophageal reflux disease without esophagi tis 09/24/2016 Panic attacks 09/24/2016 Encounters Date Type Department Care Team Description 10/23/2024 3:30 PM EST Office Visit [facility] [address] [place] [address] Rekha Hills MD Coronary artery disease involving iliamna coronary artery of iliamna heart without angina pectoris (Primary Dx); Essential hypertension; Mixed hyperlipidemia; Degenerative disc disease, cervical from Last 3 Months Immunizations Name Administration Dates Next Due Influenza Quadravalent, 0.5m l (Fluzone High-dose) 65yo and older 07/11/2023,11/29/2022 Influenza Quadravalent, MDCK , 0.5ml, preservative free (Flucelvax) 6mo and older 10/03/2018 Moderna SARS-CoV-2 COVID-19, mRNA, LNP-S, preservative free 07/11/2023 Pneumococcal conjugate 20 va lent (Prevnar 20, PCV 20) 2mo and older 02/04/2023 Pneumococcal polysaccharide 23 valent (Pneumovax 23) 2yo and older 09/24/2016 Zoster recombinant (Shingrix) 19yo and older 01/2023 Social History Tobacco Use Types Packs/Day Years Used Date Smoking Tobacco: Former Smokeless Tobacco: Never Alcohol Use Standard Drinks/Week Comments Yes 0 (1 standard drink = 0.6 oz pur e alcohol) 2 glasses of wine per day Sex and Gender Information Value Date Recorded Sex Assigned at Not on file Legal Sex Male 8:42 PM EST Gender Identity Not on file Sexual Orientation Not on file Obstetrics History Last Filed Vital Signs Vital Sign Reading Time Taken Comments Blood Pressure 170/88 10/23/2024 3:34 PM EST Pulse 47 10/23/2024 3:34 PM EST Temperature - - Respiratory Rate - - Oxygen Saturation 100% 10/23/2024 3:34 PM EST Inhaled Oxygen Concentration - - Weight 77.7 kg (171 lb 3.2 oz) 10/23/2024 3:34 P M EST Height 182.9 cm (6') 10/23/2024 3:34 PM EST Body Mass Index 23.22 10/23/2024 3:34 PM EST Plan of Treatment Health Maintenance Due Date Last Done Comments DTaP,Tdap,and Td Vaccines (2 - Td or Tdap) 10/04/2016 10/04/2006 RSV Immunization Patients 60+ Years Old (1 - 1-dose 75+ series) 2021 Medicare Annual Wellness Visit 09/09/2022 Social Influencers of Health Screening 09/09/2022 Zoster Vaccines (2 of 2) 04/01/2023 02/04/2023 Depression Screening 02/05/2024 02/04/2023 Falls Risk Assessment 02/05/2024 02/04/2023 COVID-19 Vaccine ( season) 2024 07/11/2023, 11/29/2022, 09/04/2021, Additional history exists Hypertension/CHF/CAD Annual BMP Blood Test 09/05/2025 09/05/2024, 12/02/2021, 12/02/2021, Additional history exists Cholesterol Screening (Lipid Panel) 09/05/2029 09/05/2024, 09/24/2016 Hepatitis C Screening Completed 09/24/2016 Pneumococcal Vaccine: 50+ Years Completed 02/04/2023, 09/24/2016 Influenza Vaccine Completed 07/30/2024, , 11/29/2022, Additional history exists HIB Vaccines Aged Out No longer eligi ble based on patient's age to complete this topic HPV Vaccines Aged Out No longer eligi ble based on patient's age to complete this topic Hepatitis A Vaccines Aged Out No long er eligible based on patient's age to complete this topic Hepatitis B Vaccines Aged Out No long er eligible based on patient's age to complete this topic IPV Vaccines Aged Out No longer eligi ble based on patient's age to complete this topic MMR Vaccines Aged Out No longer eligi ble based on patient's age to complete this topic Meningococcal ACWY Vaccine Aged Out N o longer eligible based on patient's age to complete this topic Meningococcal B Vacine Aged Out No lo nger eligible based on patient's age to complete this topic RSV Immunization Patients Under 20 months Aged Out No longer eligible based on patient's age to complete this topic Varicella Vaccines Aged Out No longer eligible based on patient's age to complete this topic Medical Devices Implanted Type Area Grading Machine Operator Device Identifier Shelf Expiration Date Model / Serial / Lot Shell Trident Psl G 58mm 5 Hole Cluster [facility] - [id number] Implanted:Qty: 1 on 08/28/2018 by Rekha Otoole MD Right: Hip [employer] 05/16/2023 [id number] / / [id number] Screw Trident Secur-Fit 40mm 6.5mm Titanium Bone Cancellous - [id number] Implanted:Qty: 1 on 08/28/2018 by Rekha Otoole MD Right: Hip [employer] 02/15/2023 [id number] 1 / / [id number] Screw Trident Secur-Fit 35mm 6.5mm Titanium Bone Cancellous - [id number] Implanted:Qty: 1 on 08/28/2018 by Rekha Otoole MD Right: Hip [employer] 04/06/2023 [id number] / / [id number] Insert Trident 10d G 36mm Eccentric X3 Acetabular Hip - [id number] Implanted:Qty: 1 on 08/28/2018 by Rekha Otoole MD Right: Hip [employer] 02/08/2022 [id number] / / [id number] Stem Secur-Fit Plus 10 160mm 35mm 14mm Primar Malone Femoral Hip - [id number] Implanted:Qty: 1 on 08/28/2018 by Rekha Otoole MD Right: Hip [employer] 03/08/2023 [id number] / / [id number] Head 0mm 36mm C Taper High Performance Offset [employer] Delta - [id number] Implanted:Qty: 1 on 08/28/2018 by Rekha Otoole MD Right: Hip [employer] 03/02/2023 [id number] / / [id number] Procedures Procedure Name Priority Date/Time Associated Diagnosis Comments ECG 12-LEAD Routine 10/23/2024 3:43 PM EST Coronary artery disease involving iliamna coronary artery of iliamna heart without angina pectoris Essential hypertension Mixed hyperlipidemia Degenerative disc disease, cervical BASIC METABOLIC PANEL Routine 09/05/2024 11:56 AM EST LIPID PANEL Routine 09/05/2024 11:55 AM EST HM DEPRESSION SCREENING Routine 02/04/2023 FALLS RISK ASSESSMENT Routine 02/04/2023 HEPATITIS C SCREENING Routine 09/24/2016 from Last 3 Months or Most Recently Relevant to Health Maintenance Results * ECG 12 lead (10/23/2024 3:43 PM EST) Ventricular Rate ECG 47 BPM GEMUSE Atrial Rate 47 BPM GEMUSE P-R Interval 228 ms GEMUSE QRS Duration 90 ms GEMUSE Q-T Interval 438 ms GEMUSE QTc 387 ms GEMUSE P Wave Kersey 73 degrees GEMUSE R Kersey 47 degrees GEMUSE T Kersey 31 degrees GEMUSE ECG Interpretation Sinus bradycardia with 1st degree A-V block Otherwise normal ECG When compared with ECG of 08-NOV-2017 10:08, NV interval has increased Vent. rate has decreased BY ??29 BPM Confirmed by REKHA HILLS ([id number]) on 10/23/2024 5:40:51 PM GEMUSE 10/23/2024 3:43 PM EST 10/23/2024 5:40 PM EST us Rekha Hills MD ECG ORDERABLES Final Result GEMUSE * Basic metabolic panel (09/05/2024 11:56 AM EST) Glucose 79 70 - 99 mg/dL [facility] Blood Urea Nitrogen (BUN) 17 8 - 27 mg/dL [facility] Creatinine 1.22 0.76 - 1.27 mg/dL [facility] eGFR 61 >59 mL/min/1.7 3 [facility] BUN/Creatinine Ratio 14 10 - 24 [facility] Sodium 138 134 - 144 mmol/L [facility] Potassium 5.1 3.5 - 5.2 mmol/L [facility] Chloride 100 96 - 106 mmol/L [facility] Carbon Dioxide 24 20 - 29 mmol/L [facility] Calcium 9.6 8.6 - 10.2 mg/dL [facility] 1 09/05/2024 11:5 6 AM EST 09/05/2024 Narrative [facility] - 09/06/2024 1:07 PM EST Performed at: ??01 - [facility] [address] ??[id number] Western Philosophy Professor: Ayleen Andersen MD, Phone: ??[phone] us King Braun NP LAB BLOOD ORDERABLES Final Result Performing Organization Address [facility] de Phone Number [facility] * Lipid panel (09/05/2024 11:55 AM EST) Pathologist [facility] Cholesterol Total 169 100 - 199 mg/dL [facility] Triglycerides 80 0 - 149 mg/dL [facility] HDL Cholesterol 67 >39 mg/dL [facility] 1 VLDL Cholesterol Calculated 15 5 - 40 mg/dL [facility] 1 LDL Chol Calc ([facility]) 87 0 - 99 mg/dL [facility] 1 09/05/2024 11:5 5 AM EST 09/05/2024 Narrative [facility] - 09/06/2024 1:07 PM EST Performed at: ??01 - [facility] [address] ??[id number] Western Philosophy Professor: Ayleen Andersen MD, Phone: ??[phone] us Rekha Hills MD LAB BLOOD ORDERABLES Final Res ult Performing Organization Address City/[facility]/ZIP Co de Phone Number [facility] * Hm Falls Risk Assessment (02/04/2023) Falls Risk Assessment abstracted Historical Provider HEALTH MAINTENANCE Final Result * Depression Screening (02/04/2023) Depression Screening abstracted Historical Provider HEALTH MAINTENANCE Final Result * Hepatitis C Screening (09/24/2016) Pathologist [facility] Hepatitis C Screening abstracted Historical Provider HEALTH MAINTENANCE Final Result from Last 3 Months or Most Recently Relevant to Health Maintenance Insurance MEDICARE Care Teams Assembler Final Relationship Specialty Start Date End Date Paramjit Gaston MD PCP - General Family Medicine 08/31/16
--- OUTSIDE RECORDS SUMMARY | 2024-11-30 14:14 | XMS_ITS | Clinical Summary ---
Author Organization [facility] Address [address] [place] [address] Care Team Providers Care Sas Programmer Name Role Phone Hieu Saldivar Primary Care Provider Unavailab le Medications LISINOPRIL-HCTZ (PRINZIDE,ZESTO RETIC) 20-12.5 MG per tablet TAKE 1 TABLET BY MOUTH EVERY DAY 90 1 02/24/2010 Active Omeprazole (PriLOSEC) [address] capsule TAKE 1 CAPSULE TWICE DAILY. 60 1 09/11/2015 Active Active Problems Problem Noted Date Diagnosed Date Heartburn 01/29/2016 Abnormal glucose 09/22/2015 Laryngopharyngeal reflux (LPR) 09/11/2015 Overview (11/06/2023): Transitioned From: Chronic sore throat; Description: Chronic ST 2014, dx GERD here, confirmed by ENT. Has resolved with life style changes, doing great Post-nasal drip 09/11/2015 Erectile dysfunction 09/11/2013 Corns 09/07/2012 Overview (11/06/2023): Description: corn of right second toe--some flexion deformity--referred to rake operator Former smoker 09/07/2012 Overview (11/06/2023): Description: discontinued smoking age 36 Murmur 09/07/2012 Overview (11/06/2023): Description: 1-2/6 systolic apical murmur noted on exam 09/07/12---Echo ordered on visit 09/2013-not done Overweight 09/07/2012 Overview (11/06/2023): Description: he has lost 17 pounds since 2010 with regular exercise and sensible diet Osteoarthritis of hip 09/06/2012 Overview (11/06/2023): Description: left total hip replacement Osteoarthritis of knee 04/03/2012 Overview (11/06/2023): Description: status post left total knee replacement 09/11 Diverticulosis of colon 04/03/2012 Overview (11/06/2023): Description: noted on colonoscopy 2009--- asymptomatic---7 year F/U by Dr Dawn Benign enlargement of prostate 04/03/2012 Overview (11/06/2023): Description: he sees a urologist in [place] near his home--Dr. Barnes--Apparently patient has had some urinary retention with several UTIs in 2012--He had TURP in the spring Sleep disturbances 09/10/2009 Overview (11/06/2023): Impression - [id number]: -chronic issue, stable and unchanged, feels very well rested, nothing further needed; Description: patient states he only gets 4-6 hours of sleep per night--- his energy level is fine Hypertension 09/10/2009 Overview (11/06/2023): Impression - [id number]: HTN: chronic and stable on meds now; -diet and exercise reviewed; -continue lisinopril-hctz; -labs reviewed; Description: His amlodipine was discontinued in January 2014 as blood pressure readings were low Paroxysmal atrial fibrillation 09/10/2009 Overview (11/06/2023): Annotation - [id number]: age 31, no recurrence Impression - [id number]: PAF: no issues in over 30 years, nothing needed; Description: occur age 31 no recurrence Immunizations Name Administration Dates Next Due Td (adult), adsorbed 10/04/2006 Family History Medical History Relation Name Comments Cirrhosis/Hepatitis/Liver Disorder Father Cirrhosis : Father Tuberculosis Mother Tuberculosis : Mother Hypertension Other hypertension : Other Relation Name Status Comments Father Mother Other Social History Tobacco Use Types Packs/Day Years Used Date Smoking Tobacco: Never Assessed Comments:Smoking Status:No c urrent tobacco use Sex and Gender Information Value Date Recorded Sex Assigned at Not on file Legal Sex Male 5:45 PM EDT Gender Identity Not on file Sexual Orientation Not on file Last Filed Vital Signs Vital Sign Reading Time Taken Comments Blood Pressure 148/82 09/22/2015 9:55 AM EST Pulse 59 09/11/2015 9:37 AM EST Temperature 36.8 ??C (98.3 ??F) 12/10/2014 8:08 AM ED T Respiratory Rate 16 04/24/2012 6:35 PM EDT Oxygen Saturation 97% 12/10/2014 8:08 AM EDT Inhaled Oxygen Concentration - - Weight 85.8 kg (189 lb 3.9 oz) 09/22/2015 9:55 A M EST Height 177.8 cm (5' 10 ) 09/22/2015 9:55 AM EST Body Mass Index 27.15 09/22/2015 9:55 AM EST Plan of Treatment Health Maintenance Due Date Last Done Comments Hepatitis C Screening 1945 Pneumococcal 50+ years (1 of 1 - PCV) 1996 Zoster (Shingrix) (1 of 2) 1996 DTaP/Tdap/Td (1 - Tdap) 10/05/2006 10/04/2006 RSV (1 - 1-dose 75+ series) 2021 COVID-19 Vaccine (2023-2 5 season) 2024 Influenza (#1) 2024 HPV Vaccine Aged Out No longer eligi ble based on patient's age to complete this topic Hep A Aged Out No longer eligi ble based on patient's age to complete this topic Hep B Aged Out No longer eligi ble based on patient's age to complete this topic Hib Aged Out No longer eligi ble based on patient's age to complete this topic Meningococcal ACWY Aged Out No longer eligible based on patient's age to complete this topic Zoster (Zostavax) Discontinued Care Teams Sas Programmer Relationship Specialty Start Date End Date Hieu Saldivar PCP - General 05/09/23
--- OUTSIDE RECORDS SUMMARY | 2024-11-30 14:14 | XMS_ITS | Encounter Summary ---
Author Organization [facility] Address [address] [place] [address] Care Team Providers Care Commercial Lines Account Assistant Name Role Phone Hieu Saldivar Primary Care Provider Unavailab le Encounter Details Date Type Department Care Team (Late st Contact Info) Description 02/03/2010 Orders Only [facility] LEGACY DEPT [address] [place] [address] Carey Rosa Social History Tobacco Use Types Packs/Day Years Used Date Smoking Tobacco: Never Assessed Sex and Gender Information Value Date Recorded Sex Assigned at Not on file Legal Sex Male 5:45 PM EDT Gender Identity Not on file Sexual Orientation Not on file documented as of this encounter Procedure Notes * Carey Rosa - 02/03/2010 7:59 AM EDT Discussion/Summary Your labs are normal! Plan 1 BASIC METABOLIC PANEL Status: Complete Done: [id number] 08:45AM BASIC METABOLIC PANEL [id number] 08:45AM Carey Rosa FASTING: NO Testing Performed at: [email or web address], [address] [place] [address], , Safety Companion: Canelo Francis MD Test Name Result Flag Reference eGFR-O 104 60-1000 Units of measure for estimated Glomular Filtration Rate: mL/min/1.73m2. If patient is , multiply reported result by 1.21 eGFR calculation is only valid for adults 18-85 years of age. GLUCOSE-O 93 mg/dL 65-99 Fasting Reference Interval BUN-O 17 mg/dL 8-23 SODIUM-O 140 mmol/L 133-145 POTASSIUM-O 4.6 mmol/L 3.3-5.1 CHLORIDE-O 102 mmol/L 96-108 CO2-O 31 mmol/L 22-32 CREATININE-O 0.8 mg/dL 0.5-1.2 BUN/CREAT RATIO-O 21 6-25 CALCIUM-O 9.8 mg/dL 8.8-10.2 Colonoscopy 27Oct2009 11:14AM Hieu Saldivar Test Name Result Flag Reference Colonscopy Normal N Verified Results BASIC METABOLIC PANEL 02Feb2010 08:45AM Carey Rosa FASTING: NO Testing Performed at: [facility], [address] [place] [address], , Safety Companion: Canelo Francis MD Test Name Result Flag Reference eGFR-O 104 60-1000 Units of measure for estimated Glomular Filtration Rate: mL/min/1.73m2. If patient is , multiply reported result by 1.21 eGFR calculation is only valid for adults 18-85 years of age. GLUCOSE-O 93 mg/dL 65-99 Fasting Reference Interval BUN-O 17 mg/dL 8-23 SODIUM-O 140 mmol/L 133-145 POTASSIUM-O 4.6 mmol/L 3.3-5.1 CHLORIDE-O 102 mmol/L 96-108 CO2-O 31 mmol/L 22-32 CREATININE-O 0.8 mg/dL 0.5-1.2 BUN/CREAT RATIO-O 21 6-25 CALCIUM-O 9.8 mg/dL 8.8-10.2 Signatures Carey Rosa PA-C; Feb 03 2010 7:59AM (Author) documented in this encounter Plan of Treatment Not on file documented as of this encounter Visit Diagnoses Not on filedocumented in this encounter Care Teams Commercial Lines Account Assistant Relationship Specialty Start Date End Date Hieu Saldivar PCP - General 05/09/23 documented as of this encounter
== END 2024-11-30 14:15 | disposition home or self-care (01) ==
LOC: HO.HUSH 11:55
PROVIDERS: PCP Family Medicine; Visit Provider Urology
DX: N32.81 Overactive bladder (principal)
CPT/HCPCS: 99213

== ENCOUNTER 2025-07-03 11:41 | Outpatient (AMB) | payer MEDICARE, SELFPAY ==
--- NOTE | 2025-07-03 11:42 | A.OFFVIS_ITS ---
Intake Visit Reasons: 6m follow up Intake Note: Pt presents to the office today for a 6 month follow up Urology meds : Fesoterodine Blood Thinner : Aspirin PVR 25 mls . Arts And Crafts Instructor Required: No Accompanied by: Self / Same As Patient Allergies No Known Allergies Allergy (Verified 07/03/25 11:44) HPI Comments Details: Aba is a pleasant male. He is a patient of Dr Gaston. He is seen for the following urologic conditions - overactive bladder Six-month follow-up Continues with a pickleball Had been on festerodine for overactive bladder Nocturia x1 Continue with Toviaz Prior Cystoscopy 07/25 - open bladder neck, grade 3 trabeculations, small diverticulum Prior medications - oxybuytinin, tadalafil, myrbetriq effective but not covered by insurance, minimal impact from Gemtessa Overactive bladder Longstanding urgency and frequency Prior prostate procedure for BPH Discussed bladder instability Discussed dietary triggers Current therapy tadalafil 5 mg Cystoscopy 07/25 - open bladder neck prior to have, grade 3 trabeculation, small diverticula Prior medication oxybutynin minimal impact PFSH Medical History HTN (hypertension) Frequent urination Surgical History H/O transurethral resection of prostate Review of Systems Const Denies chills and Denies fever(s) Card Reports no additional complaints and Denies syncope Resp Denies cough GI Denies abdominal pain and Denies heartburn Reports as per HPI and Denies change in libido Neuro Denies syncope Psych Denies change in libido Endo Denies change in libido Physical Exam Const General: cooperative, healthy appearing, comfortable and no acute distress Orientation/consciousness: patient oriented x3 HEENT Face and sinus: Yes normal facial exam Mouth: moist mucous membranes Neck Neck: Yes normal visual inspection, Yes full ROM and Yes trachea midline Chest Chest palpation & inspection: normal inspection of the chest Resp Effort & Inspection: normal respiratory effort, able to speak in complete sentences and no respiratory distress GI Inspection: Yes normal to inspection Back/Spine/Pelvis Cervical Spine: normal cervical lordosis Thoracic/Lumbar Spine: thoracic and lumbar spine normal to inspection Skin General skin exam: no rashes or lesions noted Neuro General: patient oriented x3, gait normal, tone normal and moves all extremities Extrem General: Yes normal to inspection and Yes capillary refill normal Office Procedures Post Void Residual Post Residual Void Post Void Residual (PVR): 25 85236-Iuaz Void Residual by ultrasound Results AMB Urinalysis, Automated UA Leukoctes 0 Tej/uL Last Edit by Adele Stokes, [place] on 07/03/25 13:01 UA Nitrite Negative Last Edit by Adele Stokes, [place] on 07/03/25 13:01 UA Urobilinogen 0.2 mg/dL Last Edit by Adele Stokes, [place] on 07/03/25 13:01 UA Protein 30 mg/dL Last Edit by Adele Stokes, [place] on 07/03/25 13:01 UA pH 5.5 Last Edit by Adele Stokes, [place] on 07/03/25 13:01 UA Blood 0 Harsh/uL Last Edit by Adele Stokes, [place] on 07/03/25 13:01 UA Specific [place] 1.025 Last Edit by Adele Stokes, [place] on 07/03/25 13:01 UA Ketone Negative Last Edit by Adele Stokes, [place] on 07/03/25 13:01 UA Bilirubin 0 mg/dL Last Edit by Adele Kike, [place] on 07/03/25 13:01 UA Glucose 0 mg/dL Last Edit by Adele Kike, [place] on 07/03/25 13:01 Assessment & Plan Assessment & Plan (1) Overactive bladder: Code(s): N32.81 - Overactive bladder Category: Medical Plan Six-month follow-up Orders: Orders AMB Post Void Residual by ultrasound Today N32.81 - Overactive bladder AMB Urinalysis Automated Today Z13.9 - Encounter for screening, unspecified Patient Instructions: This note is constructed using voice recognition software. While every effort has been made to ensure accuracy gas welding machine operator errors may have been included. Imaging studies, laboratory and physical exam results were discussed and reviewed in detail. No major barriers to patient understanding were identified. An opportunity to ask questions regarding the treatment plan was provided. All questions were answered. The patient expressed understanding and agreement with the above treatment plan. The patient is aware they should contact our office by phone for worsening of their current condition or the appearance of new urologic symptoms. Compliance is encouraged with any medications and followup testing that is ordered. It is a privilege to participate in the urologic care of your patient. If you have any questions or concerns regarding treatment for the above conditions, or other urologic issues, please do not hesitate to contact me. The office telephone contact is [phone]. Sincerely, Dr Giovanny Vega MD, SOP[facility] - Urology Compassionate Specialist Care for the Genitourinary System Coding Level of Care Code Est Pt Level 3 (23229) Complex EM visit Add On G2211 Diagnoses Overactive bladder N32.81 CPT Codes Post Residual Void - PVR CPT Code: 83322-Gkdz Void Residual by ultrasound ([id number])
--- OUTSIDE RECORDS SUMMARY | 2025-07-03 13:18 | XMS_ITS ---
Author Name [facility] Organization Unknown History of Medication Use Medication Directions Dispensed Refills Start Date End Date Stat Fesoterodine Fumarate ER (TOVIAZ) 4 MG TB24 24 hr tablet Take 1 tablet (4 mg total) by mouth daily. for 30 days 02/29/2024 active lisinopril (PRINIVIL,ZESTRIL) tablet 20 mg Take 1 tablet (20 mg total) by mouth daily. 08/30/2023 08/30/2024 active betamethasone acetate-betamethason e sodium phosphate (CELESTONE) injection 12 mg 12 mg, Intra-articular, Once PRN Procedure, Starting on Tue08/31/23 at 0845, For 1 dose 04/28/2023 08/31/2023 completed omeprazole (PriLOSEC) 40 MG capsule Take 1 capsule (40 mg total) by mouth daily. 05/05/2022 03/30/2024 aborted ASPIRIN LOW DOSE 81 MG EC tablet Take 1 tablet (81 mg total) by mouth daily. 05/17/2020 active Problems Problem Status Onset Date Problem Type Date of Resolution Source Panic attacks active 2016-09-24 ProblemAct [facility] Disorder of rotator cuff, right active 2017-06-02 ProblemAct [facility] History of COVID-19 active 2022-11-08 ProblemAct [facility] CAD, multiple vessel active 2017-11-08 ProblemAct [facility] Essential hypertension active 2016-09-24 ProblemAct [facility] Raynaud's phenomenon without gangrene active 2019-02-07 ProblemAct [facility] History of total hip arthroplasty, right active 2008-03-03 ProblemAct [facility] Degenerative disc disease, cervical active EncounterDiagnosisAct [facility] History of total knee arthroplasty, left active 2010-09-02 ProblemAct [facility] Mixed hyperlipidemia active 2021-02-12 ProblemAct [facility] History of rotator cuff surgery active 2018-10-04 ProblemAct [facility] Esophageal thickening active 2016-09-24 ProblemAct [facility] History of total hip arthroplasty, left active 2018-10-04 ProblemAct [facility] Diverticulitis of sigmoid colon active 2022-02-08 ProblemAct [facility] S/P drug eluting coronary stent placement active 2017-11-21 ProblemAct [facility] Gastroesophageal reflux disease without esophagitis active 2016-09-24 ProblemAct [facility] Alcohol use disorder, moderate, dependence active 2022-11-08 ProblemAct [facility] Benign prostatic hyperplasia with lower urinary tract symptoms active 2022-08-07 ProblemAct [facility] Spondylosis of cervical region without myelopathy or radiculopathy active 2018-04-21 ProblemAct [facility] Allergic rhinitis active 2018-03-10 ProblemAct [facility] History of SD (myocardial infarction) active 2022-11-08 ProblemAct [facility] Nontraumatic tear of right rotator cuff, unspecified tear extent active EncounterDiagnosisAct [facility] Rupture of right proximal biceps tendon, initial encounter active EncounterDiagnosisAct [facility] Immunizations Vaccine Date Source Lot Number Status Covid-19 (Moderna Booster 18+) 0.25mL dosage 07/11/2023 [facility] completed Influenza Quad (High Dose Fl uzone) 0.7mL >65Yrs (HD-IIV4) 07/11/2023 [facility] [id number] completed Pneumococcal Conjugate PCV20 02/04/2023 [facility] [id number] completed Shingrix Vaccine (Zoster Recombinant) 02/04/2023 [facility] completed Covid-19 (Moderna 12+) Bivalent 50mcg/0.5mL 11/29/2022 [facility] [id number] completed Influenza Quad (High Dose Fl uzone) 0.7mL >65Yrs (HD-IIV4) 11/29/2022 [facility] [id number] completed Influenza Quad (Flucelvax) 0 .5mL >6mon (ccIIV4) 10/03/2018 [facility] completed Pneumococcal Polysaccharide PPSV23 09/24/2016 [facility] [id number] completed Td (Adult) Decavac 10/04/2006 [facility] comple steff Encounters Encounter Type Encounter Reason Primary Diagnosis Location Date Ambulatory Unspecified rotator cuff tear or rupture of right shoulder, not specified as traumatic Unspecified rotator cuff tear or rupture of right shoulder, not specified as traumatic [facility] 05/16/2025 Ambulatory [facility] 04/26/2025 Ambulatory Pain in right shoulder Pain in right shoulder [facility] 04/26/2025 Ambulatory Unspecified rotator cuff tear or rupture of right shoulder, not specified as traumatic Unspecified rotator cuff tear or rupture of right shoulder, not specified as traumatic [facility] 01/30/2024 Ambulatory Unspecified rotator cuff tear or rupture of right shoulder, not specified as traumatic Unspecified rotator cuff tear or rupture of right shoulder, not specified as traumatic [facility] 12/08/2023 Ambulatory Spondylosis without myelopathy or radiculopathy, cervical region Spondylosis without myelopathy or radiculopathy, cervical region [facility] 08/31/2023 Ambulatory Pain, unspecified [facility] 04/28/2023 Ambulatory Pain, unspecified [facility] 04/28/2023 Ambulatory [facility] 11/27/2021 Care Team Organization Name Specialty Phone Email Start Date End Da te [facility] 04/27/2025 [facility] 12/08/2023 [facility] 04/28/2023 06/14/2025 [facility] MANUEL OCHOA, Primary Care 04/28/2023 [facility] MANUEL OCHOA Primary Care 08/10/2022 05/21/20 [facility] Yariel Hagen [facility] 11/28/2021 05/21/2024
--- OUTSIDE RECORDS SUMMARY | 2025-07-03 13:18 | XMS_ITS | Clinical Summary ---
Author Organization [facility] Address [address] [place] [address] Care Team Providers Care Communications Lead Name Role Phone Paramjit Gaston MD Primary Care Provider [phone] Allergies No known active allergies Medications No known medications Active Problems No known active problems Encounters Date Type Department Care Team Description 05/16/2025 9:15 AM EDT Office Visit Orthopedic [address] [address] Rebel Smith MD Nontraumatic tear of right rotator cuff, unspecified tear extent (Primary Dx); Rupture of right proximal biceps tendon, initial encounter 04/26/2025 5:35 PM EDT Ancillary Procedure Orthopedic [address] [address] 04/26/2025 5:00 PM EDT Consult Orthopedic [address] [address] Destin Spann PA-C Acute pain of right shoulder (Primary Dx) from Last 3 Months Social History Tobacco Use Types Packs/Day Years Used Date Smoking Tobacco: Never Assessed Sex and Gender Information Value Date Recorded Sex Assigned at Male 08/30/2023 11:18 AM EST Legal Sex Male 5:13 PM EDT Gender Identity Male 08/30/2023 11:18 AM EST Sexual Orientation Heterosexual (straight) 08/30 11:18 AM EST Last Filed Vital Signs Vital Sign Reading Time Taken Comments Blood Pressure 182/99 09/25/2020 9:11 PM EST Pulse 86 09/25/2020 9:11 PM EST Temperature 36.8 C (98.2 F) 09/25/2020 9:11 PM EST Respiratory Rate 18 09/25/2020 9:11 PM EST Oxygen Saturation 99% 09/25/2020 9:11 PM EST Inhaled Oxygen Concentration - - Weight - - Height - - Body Mass Index - - Plan of Treatment Health Maintenance Due Date Last Done Comments Advance Care Planning 1945 Hepatitis C Virus Screening 1945 DTaP/Tdap/Td Vaccines (1 - Tdap) 1965 Pneumococcal Vaccines 50+ (1 of 1 - PCV) 1996 Zoster (Shingles) Vaccine (1 of 2) 1996 RSV Vaccine 60 years and older and Patients (1 - 1-dose 75+ series) 2021 Influenza Vaccine 05/03/2025 07/11/2023, 11/29/2022, 10/03/2018 COVID-19 Vaccine (3 - 2024-2 6 season) 2025 07/11/2023, 11/29/2022 Hepatitis B Vaccines Aged Out No long er eligible based on patient's age to complete this topic Procedures Procedure Name Priority Date/Time Associated Diagnosis Comments XR SHOULDER 2+ VIEWS-RIGHT Routine 04/26/2025 5:38 PM EDT Acute pain of right shoulder from Last 3 Months Results * XR Shoulder 2+ views-Right (04/26/2025 5:38 PM EDT) Narrative [facility] - 04/26/2025 5:38 PM EDT This exam was performed in office at [facility] and images reviewed by orthopedic provider. Any findings are documented within ambulatory encounter note on date of service. us Destin Spann PA-C [facility] ORDER JUAN Final Result OA from Last 3 Months Insurance MEDICARE PART A & B MEDICARE PART A & B [facility] [place]) MEDICARE PART A & [place] [address] [place] [address] TPL (AUTO/LIABILITY) [facility] on file Care Teams Communications Lead Relationship Specialty Start Date End Date Paramjit Gaston MD PCP - General Internal Medicine 09/25/20
--- OUTSIDE RECORDS SUMMARY | 2025-07-03 13:18 | XMS_ITS | Encounter Summary ---
Author Organization [facility] Address [address] [place] [address] Care Team Providers Care Pacs Specialist Name Role Phone Hieu Saldivar Primary Care Provider Unavailab le Encounter Details Date Type Department Care Team (Late st Contact Info) Description 02/03/2010 Orders Only [facility]GAC[facility] DEPT [address] [place] [address] Carey Rosa Social History Tobacco Use Types [...] 1 BASIC METABOLIC PANEL Status: Complete Done: [id number] 08:45AM BASIC METABOLIC PANEL [id number] 08:45AM Carey Rosa FASTING: NO Testing Performed at: [facility], [address] [place] [address], , Installation & Maintenance Executive: Canelo Francis MD Test Name Result Flag [...] Carey Rosa FASTING: NO Testing Performed at: [facility], [address] [place] [address], , Installation & Maintenance Executive: Canelo Francis MD Test Name Result Flag [...] on filedocumented in this encounter Care Teams Pacs Specialist Relationship Specialty Start Date End Date Hieu Saldivar PCP - General 05/09/23 documented as of this encounter
--- OUTSIDE RECORDS SUMMARY | 2025-07-03 13:18 | XMS_ITS | Encounter Summary ---
Author Organization [facility] Address [address] [place] [address] Care Team Providers Care Cap Blocker Name Role Phone Paramjit Gaston MD Primary Care Provider [phone] Encounter Details Date Type Department Care Team (Late st Contact Info) Description 12/07/2021 Erroneous Encounter [facility] CONVERSION DEPT [address] [place] [id number] ProviderChristian MD Social History Tobacco Use Types [...] on filedocumented in this encounter Care Teams Cap Blocker Relationship Specialty Start Date End Date Paramjit Gaston MD PCP - General Internal Medicine 09/25/20 documented as of this encounter
--- OUTSIDE RECORDS SUMMARY | 2025-07-03 13:18 | XMS_ITS | Clinical Summary ---
Author Organization [facility] Address [address] [place] [address] Care Team Providers Care Printed Circuit Boards Pinner Name Role Phone Hieu Saldivar Primary Care [...] of right second toe--some flexion deformity--referred to quality control auditor Former smoker 09/07/2012 Overview (11/06/2023): Description: discontinued [...] (11/06/2023): Description: he sees a urologist in [place] near his home--Dr. Barnes--Apparently patient has had some urinary retention with several UTIs in 2012--He had TURP in the spring Sleep disturbances 09/10/2009 Overview (11/06/2023): Impression - [id number]: -chronic issue, stable and unchanged, feels very well rested, nothing further needed; Description: patient states he only gets 4-6 hours of sleep per night--- his energy level is fine Hypertension 09/10/2009 Overview (11/06/2023): Impression - [id number]: HTN: chronic and stable on meds now; -diet and exercise reviewed; -continue lisinopril-hctz; -labs reviewed; Description: His amlodipine was discontinued in January 2014 as blood pressure readings were low Paroxysmal atrial fibrillation 09/10/2009 Overview (11/06/2023): Annotation - [id number]: age 31, no recurrence Impression - 17Mmp2029: PAF: no issues in over 30 years, nothing needed; Description: occur age 31 no recurrence Immunizations Immunization Administration Dates Next Due Td (adult), adsorbed [...] 60 09/11/2015 9:37 AM EST Temperature 36.8 C (98.3 F) 12/10/2014 8:08 AM EDT Respiratory Rate 16 04/24/2012 6:35 PM EDT [...] - 1-dose 75+ series) 2021 COVID-19 Vaccine ( - 2023-2 5 season) 2025 Influenza (#1) 2025 HPV Vaccine (No Doses Required) Completed Hep A Aged Out No longer eligi [...] this topic Zoster (Zostavax) Discontinued Care Teams [employer]ed Circuit Boards Pinner Relationship Specialty Start Date End Date Hieu Saldivar PCP - General 05/09/23
--- OUTSIDE RECORDS SUMMARY | 2025-07-03 13:18 | XMS_ITS | Clinical Summary ---
Author Organization [facility] Address [address] [place] [address] Care Team Providers Care Hotel Administrative Assistant Name Role Phone Paramjit Gaston MD Primary [...] Date History of COVID-19 11/08/2022 History of OR (myocardial infarction) 11/08/2022 Alcohol use disorder, moderate, [...] 04/21/2018 Abdominal cramping 03/10/[address] elevation OR (STEMI) 11/21/2017 0203/2023 Pre-op evaluation 07/06/2017 11/21/2017 [...] 59 03/30/2024 9:19 AM EDT Temperature 36.7 C (98 F) 03/30/2024 9:19 AM EDT Respiratory Rate 18 [...] Shingrix-Zoster Vaccine (2 of 2) 04/01/2023 02/04/2023 Depression Screening 03/30/2025 03/30/2024, 03/30/2024, 03/30/2024, Additional history exists Fall Risk Assessment 03/30/2025 03/30/2024, 03/30/2024, 03/30/2024, Additional history exists Preventative Health Evaluation 03/30/2025 03/30/2024, 03/30/2024, 02/04/2023, Additional history exists COVID-19 Vaccine ( season) 2025 07/11/2023, 07/11/2023, 11/29/2022 Influenza Vaccine (#1) 2025 , 11/29/2022, 06/27/2020 (Declined), Additional history exists Hepatitis C Screening Completed 09/24/2016 Pneumococcal Vaccine Completed 02/04/2023, 09/24/20 16 Hepatitis B Vaccines Aged Out No long er eligible based on patient's age to complete this topic RSV Ped < 20 months Aged Out No longe r eligible based on patient's age to complete this topic Medical Devices Implanted Type Area Cyber Security Device Identifier Shelf Expiration Date Model / Serial / Lot Shell Trident Psl G 58mm 5 Hole Cluster Rim Hydrox - [id number] - [id number] Implanted:Qty: 1 on 08/28/2018 by Josué Rodríguez MD at [facility] and Med Right: Hip [employer] 05/16/2023 [id number] / / [id number] Screw Trident Secur-Fit 40mm 6.5mm Titanium Bone Cancellous - [id number] - [id number] Implanted:Qty: 1 on 08/28/2018 by Josué Rodríguez MD at [facility] and Med Right: Hip [employer] 02/15/2023 [id number] 1 / / [id number] Screw Trident Secur-Fit 35mm 6.5mm Titanium Bone Cancellous - [id number] - [id number] Implanted:Qty: 1 on 08/28/2018 by Josué Rodríguez MD at [facility] and [facility] Right: Hip [employer] 04/06/2023 [id number] 1 / / [id number] Insert Trident 10d G 36mm Eccentric X3 Acetabular Hip - [id number] - [id number] Implanted:Qty: 1 on 08/28/2018 by Josué Rodríguez MD at [facility] and [facility] Right: Hip [employer] 02/08/2022 [id number] / / [id number] Stem Secur-Fit Plus 10 160mm 35mm 14mm Primar Malone Femoral Hip - [id number] - [id number] Implanted:Qty: 1 on 08/28/2018 by Josué Rodríguez MD at [facility] and [facility] Right: Hip [employer] 03/08/2023 [id number] / / [id number] Head 0mm 36mm C Taper High Performance Offset [employer] Delta - [id number] - [id number] Implanted:Qty: 1 on 08/28/2018 by Josué Rodríguez MD at [facility] and [facility] Right: Hip [employer] 03/02/2023 [id number] / / [id number] Advance Directives For more information, please contact: [phone] Latest Code Status on File Code Status Date Activated Date Inactivated Comments Full Code 08/28/2018 9:20 AM 08/29/2018 7:08 PM Anaya s code status was ascertained in the following way: discussion with patient . Code Status History Code Status Date Activated Date Inactivated Comments Full Code 08/28/2018 5:21 AM 08/28/2018 9:20 AM Thi s code status was ascertained in the following way: discussion with patient . Care Teams Hotel Administrative Assistant Relationship Specialty Start Date End Date Paramjit Gaston MD PCP - General Family Medicine 08/31/16
--- OUTSIDE RECORDS SUMMARY | 2025-07-03 13:18 | XMS_ITS | Clinical Summary ---
Author Organization [facility] [employer] Address [address] [place] [address] Phone Care Team Providers Care Automation Architect Name Role Phone Paramjit Gaston MD Primary Care Provider [phone] Allergies No known active allergies Medications ezetimibe (ZETIA) 10 mg tabletIndications: Mixed hyperlipidemia Take 1 tablet (10 mg total) by mouth 1 (one) time each day. 90 each 3 10/23/19 25 026 Active lisinopril (PRINIVIL,ZESTRIL) 40 mg tabletIndications: Essential hypertension Take 1 tablet (40 mg total) by mouth 1 (one) time each day. 30 each 10/23/19 25 026 Active atorvastatin (LIPITOR) 80 mg tablet TAKE 1 TABLET BY MOUTH EVERY DAY 90 tablet 2 11/28/19 25 Active aspirin 81 mg EC tablet TAKE 1 TABLET BY MOUTH EVERY DAY 90 tablet 3 12/11/19 25 Active fesoterodine 4 mg tablet extended release 24 hr Take 1 tablet by mouth 1 (one) time each day. 11/22/19 25 Active naltrexone (DEPADE) 50 mg tabletIndications: Alcohol use disorder, moderate, dependence (CMS/HCC V24, CMS/HCC V28) Take 0.5-1 tablets (25-50 mg total) by mouth 1 (one) time each day. at least one hour before planned drink. 90 each 1 02/27/20 25 Active metoprolol succinate (TOPROL-XL) 25 mg 24 hr tablet TAKE 1 TABLET BY MOUTH EVERY DAY 90 tablet 2 06/17/20 25 Active metoprolol succinate (TOPROL-XL) 25 mg 24 hr tablet TAKE 1 TABLET BY MOUTH EVERY DAY 90 tablet 2 09/19/20 24 025 Discontinued Active Problems Problem Noted Date Diagnosed Date Stage 3a chronic kidney disease ([facility] V24, S/[facility] V28) 04/26/2025 Degenerative disc disease, cervical 11/23/2023 Assessment & Plan (10/23/2024 5:38 PM EST): The patient is being followed by [facility] he has had a favorable response to cervical nerve block with modest improvement in range of motion and diminution of pain. Orders: ECG 12 lead Alcohol use disorder, modera te, dependence ([facility] V24, [facility] V28) 11/08/2022 History of ND (myocardial infarction) 11/08/2022 History of COVID-19 11/08/2022 Benign prostatic hyperplasia with lower urinary tract symptoms 08/07/2022 Mixed hyperlipidemia 02/12/2021 Assessment & Plan (10/23/2024 [...] each day. 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 04/21/2018 Allergic rhinitis 03/10/2018 S/P drug eluting coronary stent placement 2017 Coronary artery disease invo lving [place] coronary artery of [place] heart without angina pectoris 11/08/2017 Overview (11/23/2023): [...] without esophagi tis 09/24/2016 Panic attacks 09/24/2016 Osteoarthritis of hip 09/06/2012 Overview (02/26/2025): Description: left total hip replacement Osteoarthritis of knee 04/03/2012 Overview (02/26/2025): Description: status post left total knee replacement 09/11 Diverticulosis of colon 04/03/2012 Overview (02/26/2025): Description: noted on colonoscopy 2009--- asymptomatic---7 year F/U by Dr Dawn History of total knee arthroplasty, left 010 Overview (02/26/2025): Doing well Paroxysmal atrial fibrillation (CMS/HCC V24, CMS /HCC V28) 09/10/2009 Overview (02/26/2025): Annotation - [id number]: age 31, no recurrence Impression - [id number]: PAF: no issues in over 30 years, nothing needed; Description: occur age 31 no recurrence History of total hip arthroplasty, left 03/03/20 08 Resolved Problems Problem Noted Date Diagnosed Date Resolved Date Diverticulitis of sigmoid colon 02/08/2022 02/26/2025 Immunizations Immunization Administration Dates Next Due Influenza Quadravalent, 0.5m l (Fluzone High-dose) 65yo and older 07/11/2023,11/29/2022 Influenza Quadravalent, MDCK , 0.5ml, preservative free (Flucelvax) 6mo and older 10/03/2018 Influenza trivalent, 0.5mL (Fluad) 65yo and olde r 07/30/2024,10/03/2018 Moderna SARS-CoV-2 COVID-19, mRNA, LNP-S, preservative free 07/11/2023 Pneumococcal conjugate 20 va lent (Prevnar 20, PCV 20) 2mo and older 02/04/2023 Pneumococcal polysaccharide 23 valent (Pneumovax 23) 2yo and older 09/24/2016 Td Tetanus diptheria (Tdvax) 7yo and older 10/04 Zoster recombinant (Shingrix) 19yo and older 01/2023 [...] Maintenance Due Date Last Done Comments Hepatitis A Vaccines (1 of 2 - Risk 2-dose series) 1964 DTaP,Tdap,and Td Vaccines (2 - Td or Tdap) 10/04/2016 10/04/2006 RSV Immunization Adult Patients (1 - 1-dose 75+ series) 2021 Medicare Annual Wellness Visit 09/09/2022 Social Influencers of Health Screening 09/09/2022 Zoster Vaccines (2 of 2) 04/01/2023 02/04/2023 Falls Risk Assessment 02/05/2024 02/04/2023 Depression Screening 10/03/2024 02/04/2023 COVID-19 Vaccine ( season) 2025 07/11/2023, 11/29/2022, 09/04/2021, Additional history exists Influenza Vaccine (#1) 2025 , 07/11/2023, 11/29/2022, Additional history exists Hypertension/CHF/CAD Annual BMP Blood Test 04/23/2026 04/23/2025, 09/05/2024, 12/02/2021, Additional history exists Cholesterol Screening (Lipid Panel) 09/05/2029 09/05/2024, 09/24/2016 Hepatitis C Screening Completed 09/24/2016 Pneumococcal Vaccine: 50+ Years Completed 02/04/2023, 09/24/2016 HIB Vaccines Aged Out No longer eligi [...] age to complete this topic Meningococcal B Vaccine Aged Out No l onger eligible based on patient's age to complete this topic RSV Immunization Patients Under 20 months Aged Out No longer eligible based on patient's age to complete this topic Varicella Vaccines Aged Out No longer eligible based on patient's age to complete this topic Medical Devices Implanted Type Area Slot Machine Repairer Device Identifier Shelf Expiration Date Model / Serial / Lot Shell Trident Psl G 58mm 5 Hole Cluster Rim [facility] - [id number] Implanted:Qty: 1 on 08/28/2018 by Josué Otoole MD Right: Hip [employer] 05/16/2023 [id number] / / [id number] Screw Trident Secur-Fit 40mm 6.5mm Titanium Bone Cancellous - [id number] Implanted:Qty: 1 on 08/28/2018 by Josué Otoole MD Right: Hip [employer] 02/15/[id number]- 1 / / [id number] Screw Trident Secur-Fit 35mm 6.5mm Titanium Bone Cancellous - [id number] Implanted:Qty: 1 on 08/28/2018 by Josué Otoole MD Right: Hip [employer] 04/06/[id number] / / [id number] Insert Trident 10d G 36mm Eccentric X3 Acetabular Hip - [id number] Implanted:Qty: 1 on 08/28/2018 by Josué Otoole MD Right: Hip [employer] 02/08/2022 [id number] / / [id number] Stem Secur-Fit Plus 10 160mm 35mm 14mm Primar Malone Femoral Hip - [id number] Implanted:Qty: 1 on 08/28/2018 by Josué Otoole MD Right: Hip [employer] 03/08/2023 [id number] / / [id number] Head 0mm 36mm C Taper High [employer] Offset [employer] - [id number] Implanted:Qty: 1 on 08/28/2018 by Josué Otoole MD Right: Hip [employer] 03/02/2023 [id number] / / [id number] Procedures Procedure Name Priority Date/Time Associated Diagnosis Comments CBC WITH AUTO DIFFERENTIAL Routine 04/23/2025 2:56 PM EDT Alcohol use disorder, moderate, dependence (CMS/HCC V24, CMS/HCC V28) HEMOGLOBIN A1C Routine 04/23/2025 2:56 PM EDT Prediabetes CBC AND DIFFERENTIAL Routine 04/23/2025 2:56 PM EDT Alcohol use disorder, moderate, dependence (CMS/HCC V24, CMS/HCC V28) BASIC METABOLIC PANEL Routine 04/23/2025 2:56 PM EDT Essential hypertension HEPATIC FUNCTION PANEL Routine 04/23/2025 2:56 PM EDT Alcohol use disorder, moderate, dependence (CMS/HCC V24, CMS/HCC V28) LIPID PANEL Routine 09/05/2024 11:55 AM EST HM DEPRESSION SCREENING Routine 02/04/2023 HM FALLS RISK ASSESSMENT Routine 02/04/2023 HEPATITIS C SCREENING Routine 09/24/2016 from Last 3 Months or Most Recently Relevant to Health Maintenance Results * CBC auto differential (04/23/2025 2:56 PM EDT) White Blood Cell Count 5.5 3.8 - 10.8 Thousand/u L [facility] RBC Count 4.94 4.20 - 5.80 Million/uL [facility] Hemoglobin 16.1 13.2 - 17.1 g/dL [facility] Hematocrit 48.2 38.5 - 50.0 % [facility] MCV 97.6 80.0 - 100.0 fL [facility] MCH 32.6 27.0 - 33.0 pg [facility] MCHC 33.4 32.0 - 36.0 g/dL [facility] Comment: For adults, a slight decrease in the calculated MCHC value (in the range of 30 to 32 g/dL) is most likely not clinically significant; however, it should be interpreted with caution in correlation with other red cell parameters and the patient's clinical condition. RDW 12.2 11.0 - 15.0 % [facility] Platelet Count 211 140 - 400 Thousand/u L [facility] MPV 10.2 7.5 - 12.5 fL [facility] Absolute Neutrophil 3,729 1,500 - 7,800 cells/uL [facility] Absolute Lymphocytes 1,062 850 - 3,900 cells/uL [facility] Absolute Monocytes 627 200 - 950 cells/uL [facility] Absolute Eosinophils 50 15 - 500 cells/uL [facility] Absolute Basophils 33 0 - 200 cells/uL [facility] Neutrophils 67.8 % [facility] Lymphocytes 19.3 % [facility] Monocytes 11.4 % [facility] Eosinophils 0.9 % [facility] Basophils 0.6 % [facility] Blood Venous blood specimen / Unknown 04/23/2025 2:56 PM EDT 04/23/2025 2:56 PM EDT Narrative [facility] ([facility]) - 04/25/2025 6:51 PM EDT FASTING:NO FASTING: NO Paramjit Gaston MD LAB BLOOD ORDERABLES Final Resul t [facility]) [facility] [address] [place] [id number] * Hemoglobin A1c (04/23/2025 2:56 PM EDT) Hemoglobin A1C 5.6 <5.7 % [facility] Comment: For the purpose of screening for the presence of diabetes: <5.7% Consistent with the absence of diabetes 5.7-6.4% Consistent with increased risk for diabetes (prediabetes) > or =6.5% Consistent with diabetes This assay result is consistent with a decreased risk of diabetes. Currently, no consensus exists regarding use of hemoglobin A1c for diagnosis of diabetes in children. According to [place] Diabetes Association (ADA) guidelines, hemoglobin A1c <7.0% represents optimal control in non- diabetic patients. Different metrics may apply to specific patient populations. Standards of Medical Care in Diabetes(ADA). Blood Venous blood specimen / Unknown 04/23/2025 2:56 PM EDT 04/23/2025 2:56 PM EDT [facility] - 04/25/2025 6:51 PM EDT FASTING:NO FASTING: NO Paramjit Gaston MD LAB BLOOD ORDERABLES Final Resul t Performing Organization Address City/[facility] Co de Phone Number [facility] ([facility]) [facility] [address] [place] [id number] * Hepatic function panel (04/23/2025 2:56 PM EDT) Total Protein 7.1 6.1 - 8.1 g/dL [facility] Albumin 4.3 3.6 - 5.1 g/dL [facility] Globulin 2.8 1.9 - 3.7 g/dL (calc) [facility] Albumin/Globulin Ratio 1.5 1.0 - 2.5 (calc) [facility] Bilirubin Total 1.0 0.2 - 1.2 mg/dL [facility] Bilirubin Direct 0.2 < OR = 0.2 mg/dL [facility] Bilirubin Indirect 0.8 0.2 - 1.2 mg/dL (calc) [facility] Alkaline Phosphatase 84 35 - 144 U/L [facility] Aspartate aminotransferase (AST) 32 10 - 35 U/L [facility] Alanine Aminotransferase (ALT) 30 9 - 46 U/L [facility] Blood Venous blood specimen / Unknown 04/23/2025 2:56 PM EDT 04/23/2025 2:56 PM EDT Narrative [facility] ([facility]) - 04/25/2025 6:51 PM EDT FASTING:NO FASTING: NO us Paramjit Gaston MD LAB BLOOD ORDERABLES Final Resul t Performing Organization Address City/[facility]/ZIP Co de Phone Number [facility] ([place]) [facility] [address] [place] [address] * (ABNORMAL) Basic metabolic panel (04/23/2025 2:56 PM EDT) Pathologist [facility] Glucose 93 65 - 139 mg/dL [facility] Comment: Non-fasting reference interval Urea Nitrogen (BUN) 24 7 - 25 mg/dL [facility] Creatinine 1.33(H) 0.70 - 1.28 mg/dL [facility] eGFR 54(L) > OR = 60 mL/min/1.7 3m2 [facility] BUN/Creatinine Ratio 18 6 - 22 (calc) [facility] Sodium 136 135 - 146 mmol/L [facility] Potassium 4.7 3.5 - 5.3 mmol/L [facility] Chloride 98 98 - 110 mmol/L [facility] Carbon Dioxide 31 20 - 32 mmol/L [facility] Calcium 9.6 8.6 - 10.3 mg/dL [facility] Blood Venous blood specimen / Unknown 04/23/2025 2:56 PM EDT 04/23/2025 2:56 PM EDT [facility]ative [facility] - 04/25/2025 6:51 PM EDT FASTING:NO FASTING: NO Paramjit Gaston MD LAB BLOOD ORDERABLES Final Resul t [facility] ([place]) [facility] [address] [place] [phone] * Lipid panel (09/05/2024 11:55 AM EST) Pathologist [facility] Cholesterol Total 169 100 - 199 mg/dL [facility] Triglycerides 80 0 - 149 mg/dL [facility] HDL Cholesterol 67 >39 mg/dL [facility] VLDL Cholesterol Calculated 15 5 - 40 mg/dL [facility] 1 LDL Chol Calc ([facility]) 87 0 - 99 mg/dL [facility] 1 09/05/2024 11:5 5 AM EST 09/05/2024 Narrative [facility] - 09/06/2024 1:07 PM EST Performed at: [facility] [address] [id number] Site Leasing Agent: Ayleen Andersen MD, Phone: [phone] us Josué Rodriguez MD LAB BLOOD ORDERABLES Final Res ult [facility] 1 * Falls Risk Assessment (02/04/2023) Pathologist [facility] Falls Risk Assessment abstracted Historical Provider HEALTH MAINTENANCE Final Result * Depression Screening (02/04/2023) Pathologist [facility] Depression Screening abstracted Historical Provider HEALTH MAINTENANCE Final Result * Hepatitis C Screening (09/24/2016) Pathologist [facility] Hepatitis C Screening abstracted Historical Provider HEALTH MAINTENANCE Final Result from Last 3 Months or Most Recently Relevant to Health Maintenance Insurance MEDICARE Care Teams Automation Architect Relationship Specialty Start Date End Date Paramjit Gaston MD PCP - General Family Medicine 08/31/16
== END 2025-07-03 12:56 | disposition home or self-care (01) ==
LOC: HO.HUSH 11:42
PROVIDERS: PCP Family Medicine; Visit Provider Urology
DX: N32.81 Overactive bladder (principal)
CPT/HCPCS: 99213

== ENCOUNTER → 2025-07-03 11:41 | Outpatient (BNVA) | payer MEDICARE, SELFPAY | PROVIDERS: PCP Family Medicine; Visit Provider Urology | DX: N32.81 Overactive bladder (principal) | CPT/HCPCS: 51798; 81003; 99212 ==